=== PATIENT | female | born 1940 | race Caucasian/White ===

== ENCOUNTER 2018-08-07 18:02 | Inpatient (IN) | payer MEDICARE, BC ==
[~2018-08-07] VITALS: Ht 165.1 cm; Wt 80.3 kg
[~2018-08-07 18:02] MED LIST: ACET-822 PO; ALEN70TA6 PO; BUPR-51 PO; CALC0.5C11 PO; CALC500T29 PO; COLE625T9 PO; DOCU100T2 PO; ESOM40SU PO; FERR325T28 PO; LEVO75TA7 PO; LITH300C4 PO; MAGN400O6 PO; METO-356 PO; MULT-594 PO; OLME20TA13 PO; SENN-168 PO; SIMV10TA6 PO; TEMA15CA5 PO; [UNRECOGNIZED DRUG - OTHER] PO
--- NOTE | 2018-08-07 18:04 | NUR ---
MILANA ELLIS 89 FROM [facility],C/O NAUSEA/WEAKNESS/NEAR SYNCOPE, TO ER BED 9, HOOKED TO MONITOR, AWAITING MD GOMEZ
--- NOTE | 2018-08-07 18:05 | NUR ---
DR LEMUS AT BEDSIDE
[2018-08-07] MEDS ORDERED: IV NS 0.9% 1,000 ML BAG IV ONE (18:30)
[2018-08-07 18:40] LABS: BASOPHILS % (AUTO) 0.3 % (0.0-2.0); EOSINOPHILS % (AUTO) 0.3 % (0.0-6.0); HEMATOCRIT 45 % (33-45); HEMOGLOBIN 14.6 g/dL (11.5-14.8); LYMPHOCYTES # (AUTO) 1.5 /CMM (0.8-4.8); LYMPHOCYTES % (AUTO) 14.7 % (20.0-44.0); MEAN CORPUSCULAR HGB CONC 33 g/dl (31.0-36.0); MEAN CORPUSCULAR VOLUME 96 fL (82-100); MONOCYTES # (AUTO) 0.6 /CMM (0.1-1.30); MONOCYTES % (AUTO) 5.6 % (2.0-12.0); NEUTROPHILS # (AUTO) 8.3 /CMM (1.8-8.9); NEUTROPHILS % (AUTO) 79.1 % (43.0-81.0); PLATELET COUNT (AUTO) 208 /CMM (150-450); RED BLOOD CELL COUNT(AUTO) 4.65 MIL/uL (4.0-5.2); WHITE BLOOD COUNT (AUTO) 10.5 K/uL (4.3-11.0)
[2018-08-07 19:05] LABS: ALANINE AMINOTRANSFERASE 69 U/L (12-78); ALBUMIN 3.1 g/dL (3.4-5.0); ALKALINE PHOSPHATASE 83 U/L (46-116); ASPARTATE AMINOTRANSFERASE 35 U/L (15-37); BILIRUBIN,DIRECT 0.1 mg/dL (0.0-0.2); BILIRUBIN,TOTAL 0.4 mg/dL (0.2-1.0); CALCIUM, SERUM 8.8 mg/dL (8.5-10.1); CARBON DIOXIDE 29 mmol/L (21-32); CHLORIDE 105 mmol/L (98-107); CREATININE 1.1 mg/dL (0.6-1.3); GLUCOSE 122 mg/dL (74-106); POTASSIUM 3.7 mmol/L (3.5-5.1); SODIUM SERUM 142 mmol/L (136-145); TOTAL PROTEIN, SERUM 6.4 g/dL (6.4-8.2); UREA NITROGEN, BLOOD 18 mg/dL (7-18)
[2018-08-07 19:09] LABS: APPEARANCE,URINE Clear (CLEAR); BILIRUBIN,URINE MODERATE (NEGATIVE); BLOOD, URINE Trace-lysed Ery/uL (NEGATIVE); COLOR,URINE Yellow (YELLOW); KETONES,URINE 15 (NEGATIVE); LEUKOCYTE ESTERASE ,URINE Negative (NEGATIVE); NITRITE, URINE Negative (NEGATIVE); PH,URINE 5.5 (5.0-8.0); PROTEIN,URINE 30 mg/dl (NEGATIVE); UGLUCOSE Negative (NEGATIVE); UROBILINOGEN,URINE 0.2 EU/dL (0.2)
--- NOTE | 2018-08-07 19:13 | NUR ---
REPORT GIVEN TO NEIL ROSALES FOR LEANNE
--- NOTE | 2018-08-07 19:15 | NUR ---
REPORT RECEIVED FROM CONNIE NORMAN FOR LEANNE.
[2018-08-07 19:31] LABS: BACTERIA,URINE None seen /HPF (None Seen); RBC,URINE 0-2 /HPF (0-2); SQUAMOUS EPITHELIAL CELL,UR Few /HPF (None Seen); URINE AMORPHOUS URATE Few /HPF (None Seen); WBC,URINE 0-2 /HPF (0-3)
--- NOTE | 2018-08-07 20:34 | NUR ---
18G IV TO L AC X 1 ATTEMPT USING ASEPTIC TECH, BLOOD HANDED OVER TO THE LAB AT BEDSIDE. IV FLUSHES EASILY WITH NS, NO S/S INFILTRATION NOTED AT THIS TIME.
[2018-08-07] MEDS ORDERED: IOHEXOL-350 100 ML VIAL IV ONE (20:35)
[2018-08-07] MEDS ORDERED: CT SWABBABLE VALVE TRANS SET 1 EA INFUS.SET MC ONE (20:35)
[2018-08-07] MEDS ORDERED: IV NS 0.9% 250 ML IV ONE (20:35)
--- NOTE | 2018-08-07 20:44 | NUR ---
PATIENT TO CT VIA STRETCHER. VSS.
--- NOTE | 2018-08-07 20:49 | NUR ---
PATIENT BACK FROM CT.
--- NOTE | 2018-08-07 22:05 | NUR ---
RECEIVED A CALL FROM MICHELLE AT [facility] AND SHE CALLED TO INFORM THAT SHE HAS SPOKEN TO DR SHI AND AND HE HAS CONFIRMED THAT HE WILL BE ADMITTING THIS PT.
[2018-08-07] MEDS ORDERED: OLAN10TA3 PO (22:08)
[2018-08-07] MEDS ORDERED: ARIP20TA4 PO (22:08)
[2018-08-07] MEDS ORDERED: POTA20TA83 PO (22:08)
[2018-08-07] MEDS ORDERED: CHOL200026 PO (22:08)
[2018-08-07] MEDS ORDERED: OMEP20CA10 PO (22:08)
[2018-08-07] MEDS ORDERED: LEVO100T9 PO (22:08)
--- NOTE | 2018-08-07 22:12 | NUR ---
PAGED DR SHI
--- NOTE | 2018-08-07 22:25 | NUR ---
CALLED KATIE [facility] THE RADIOLOGIST
--- NOTE | 2018-08-07 22:25 | NUR ---
PT IS ASSIGNED TO TELE RM#: [id number], DX: SYNCOPE, AND ACCEPTING MD: DR SHI
[2018-08-07] MEDS ORDERED: MAGNESIUM HYDROXIDE 30 ML UDC PO SCH (22:30)
--- NOTE | 2018-08-07 22:48 | NUR ---
REPORT CALLED TO CONNIE POWERS ON M/S FOR LEANNE.
[2018-08-07 23:00] VITALS: BP 133/66
--- NOTE | 2018-08-07 23:00 | NUR ---
PHARMACOGNOSIST OPENING NOTES: RECEIVED PT FROM ER. PT ACCOMPANIED WITH CAREGIVER AT BEDSIDE. PT ON ROOM AIR AND TOLERATING WELL. NO SOB NOTED. NO S/S OF DISTRESS. PT HAS IV ON R HAND #18G AND IS PATENT AND INTACT. PT ALSO HAS IV ON LAC #18G AND IS TO BE STARTED ON IV NS AT 75ML/HR. PT TO BE PLACED ON TELE BOX WELL. BED KEPT IN LOW, LOCKED POSITION, AND SIDE RAILS X 2UP. WILL CONTINUE TO MONITOR PT.
--- NOTE | 2018-08-07 23:00 | NUR ---
PATIENT TRANSPORTED VIA STRETCHER TO TELE [id number] ON FITTING ROOM SUPERVISOR WITH RN PER ACLS PROTOCOL. VSS.
[2018-08-08] VITALS (7 sets, daily range): BP systolic 120–156; BP diastolic 56–81
[2018-08-08] MEDS ORDERED: ONDANSETRON HCL/PF 4 MG/2 ML VIAL IV PRN
[2018-08-08] MEDS ORDERED: IV NS 0.9% 1,000 ML BAG IV SCH
[2018-08-08] MEDS ORDERED: ACETAMINOPHEN 325 MG TABLET PO PRN
[2018-08-08] MEDS ORDERED: IV NS 0.9% 1,000 ML BAG IV PRN (00:30)
[2018-08-08] MEDS: IV NS 0.9% 1,000 ML IV PRN ×2 (00:48→17:08)
[2018-08-08 06:21] LABS: BASOPHILS # (AUTO) 0.1 /CMM (0.0-0.2); BASOPHILS % (AUTO) 0.9 % (0.0-2.0); EOSINOPHILS % (AUTO) 1.4 % (0.0-6.0); HEMATOCRIT 39 % (33-45); HEMOGLOBIN 13.2 g/dL (11.5-14.8); LYMPHOCYTES % (AUTO) 25.9 % (20.0-44.0); MEAN CORPUSCULAR HGB CONC 34 g/dl (31.0-36.0); MEAN CORPUSCULAR VOLUME 94 fL (82-100); MONOCYTES # (AUTO) 0.8 /CMM (0.1-1.30); MONOCYTES % (AUTO) 10.1 % (2.0-12.0); NEUTROPHILS # (AUTO) 4.8 /CMM (1.8-8.9); NEUTROPHILS % (AUTO) 61.7 % (43.0-81.0); PLATELET COUNT (AUTO) 189 /CMM (150-450); RED BLOOD CELL COUNT(AUTO) 4.17 MIL/uL (4.0-5.2); WHITE BLOOD COUNT (AUTO) 7.7 K/uL (4.3-11.0)
--- NOTE | 2018-08-08 06:32 | NUR ---
ACCESS SPECIALIST CLOSING NOTES: ALL NEEDS WERE ATTENDED AND ANTICIPATED FOR. PT KEPT CLEAN, DRY, AND COMFORTABLE. PT ON ROOM AIR AND TOLERATING WELL. NO SOB NOTED. NO S/S OF DISTRESS. PT HAS IV ON L AC #18G AND IS PATENT AND INTACT. KEPT H/L. PT ALSO HAS IV ON R HAND #18G AND IS BEING INFUSED WITH IV NS AT 75ML/HR. BED ALARM ACTIVATED. CAREGIVER AT BEDSIDE. PT ON TELE BOX AND READING SHOWS SR 67. BED KEPT IN LOW, LOCKED POSITION, AND SIDE RAILS X 2UP. WILL ENDORSE TO AM NURSE FOR LEANNE.
[2018-08-08 06:41] LABS: CARBON DIOXIDE 26 mmol/L (21-32); CHLORIDE 111 mmol/L (98-107); CREATININE 0.8 mg/dL (0.6-1.3); GLUCOSE 96 mg/dL (74-106); POTASSIUM 3.5 mmol/L (3.5-5.1); SODIUM SERUM 145 mmol/L (136-145); UREA NITROGEN, BLOOD 14 mg/dL (7-18)
--- NOTE | 2018-08-08 07:06 | NUR ---
REMOTE SENSING SURVEYOR NOTES PATIENT IN BED ALERT ORIENTED X 4, NO ACUTE DISTRESS NOTED. BREATHING UNLABORED. NO SOB NOTED. IV ACCESS PATENT AND INTACT, NO REDNESS OR SWELLING NOTED. SAFETY MEASURES IN PLACE. CALL LIGHT WITHIN REACH. WILL CONTINUE TO MONITOR ACCORDINGLY.
[2018-08-08] MEDS: PANTOPRAZOLE 40 MG TABLET.DR PO SCH (07:58)
[2018-08-08] MEDS: BUPROPION XL 150 MG TAB.ER.24 PO SCH ×2 (09:00→17:07)
[2018-08-08] MEDS: LEVOTHYROXINE SODIUM 100 MCG TABLET PO SCH (09:00)
[2018-08-08] MEDS: ENOXAPARIN SODIUM 30 MG/0.3 ML DISP.SYRIN SQ SCH (09:00)
[2018-08-08] MEDS ORDERED: LITHIUM CARBONATE 150 MG CAPSULE PO SCH (09:00)
[2018-08-08] MEDS: ASPIRIN 81 MG TAB.CHEW PO SCH (09:14)
[2018-08-08] MEDS: FERROUS SULFATE (325 MG) 325 MG/TAB TABLET PO SCH ×3 (09:14→17:07)
[2018-08-08] MEDS: METOPROLOL SUCCINATE 25 MG TAB.SR.24H PO SCH (09:15)
--- NOTE | 2018-08-08 09:28 | NUR ---
APARTMENT MAINTENANCE TECHNICIAN NOTES PATIENT CHANGED HER MIND, REFUSED TAKING MEDICATIONS SYNTHROID 100 MCG, WELLBUTRIN 150MG, LITHIUM 150MG ALREADY OPENED, WASTED MEDICATIONS WITNESSED BY ANOTHER RN NAVDEEP. PATIENT ALSO REFUSED LOVENOX 30MG SQ. RISK AND BENEFITS EXPLAINED TO THE PATIENT, VERBALIZED UNDERSTANDING.
--- NOTE | 2018-08-08 10:03 | NUR ---
ECOLOGICAL ECONOMIST NOTES SEEN AND EVALUATED BY DR JEFFRY SHI WITH NEW ORDERS MADE. NOTED AND CARRIED OUT. DR SHI MADE AWARE OF PATIENT SOME MEDICATION REFUSED TO TAKE .
--- NOTE | 2018-08-08 18:49 | NUR ---
MS RN NOTES PATIENT IN BED ALERT ORIENTED X 4, NO ACUTE DISTRESS NOTED. BREATHING UNLABORED. NO SOB NOTED. IV ACCESS PATENT AND INTACT, NO REDNESS OR SWELLING NOTED. NEEDS ATTENDED AND ANTICIPATED. KEPT CLEAN DRY AND COMFORTABLE. SAFETY MEASURES IN PLACE. CALL LIGHT WITHIN REACH. WILL ENDORSE TO NIGHT NURSE FOR CONTINUITY OF CARE.
--- NOTE | 2018-08-08 19:30 | NUR ---
RECEIVED PATIENT IN BED AWAKE, AO X 2, ABLE TO MAKE NEEDS KNOWN. NO ACUTE DISTRESS NOTED. MONITORED FOR PAIN. IV SITE PATENT, INTACT; IVF INFUSING ORDERED. RIGHT HIP DRESSING INTACT. SAFETY REMINDERS GIVEN. ON LOW BED WITH BILATERAL UPPER SIDE RAILS UP. CALL CALDERON WITHIN EASY REACH. WILL CONTINUE TO MONITOR. SITTER AT BEDSIDE.
[2018-08-08] MEDS ORDERED: SIMVASTATIN 10 MG TABLET PO SCH (22:00)
[2018-08-08] MEDS ORDERED: TEMAZEPAM 15 MG CAPSULE PO SCH (22:00)
[2018-08-08] MEDS ORDERED: OLANZAPINE 10 MG TABLET PO SCH (22:00)
[2018-08-08] MEDS ORDERED: ARIPIPRAZOLE 5 MG TABLET PO SCH (22:00)
[2018-08-08] MEDS ORDERED: SENNOSIDES 8.6 MG TABLET PO SCH (22:00)
[2018-08-09] VITALS: BP 124/55
[2018-08-09 04:00] VITALS: BP 137/75
--- NOTE | 2018-08-09 06:00 | NUR ---
PATIENT ASLEEP, EASILY AROUSABLE. RESPIRATIONS EVEN. NO SIGNS OF PAIN NOTED. DUE MEDS GIVEN WITH NO ASE NOTED. IVF INFUSING ORDERED. NEEDS ATTENDED. SAFETY PRECAUTIONS AND COMFORT MEASURES IN PLACE. WILL GIVE REPORT TO DAY SHIFT FOR CONTINUITY OF CARE. CAREGIVER AT BEDSIDE.
--- NOTE | 2018-08-09 07:28 | NUR ---
TELE/RN OPENING NOTES PATIENT IN BED IN STABLE CONDITION. A/O X 3-4. NO SIGNS OF ACUTE DISTRESS. NO COMPLAIN OF PAIN OR DISCOMFORT. ON TELE MONITOR NOTED WITH SINUS RHYTHM IN 70'S. ALL NEEDS ATTENDED TO. MANAGER DEVELOPMENT AT BEDSIDE. CALL LIGHT WITHIN REACH. WILL CONTINUE TO MONITOR TO ENSURE SAFETY.
[2018-08-09 08:00] VITALS: BP 143/72
[2018-08-09] MEDS: ENOXAPARIN SODIUM 30 MG/0.3 ML DISP.SYRIN SQ SCH (08:17)
[2018-08-09] MEDS: LEVOTHYROXINE SODIUM 100 MCG TABLET PO SCH (08:18)
[2018-08-09] MEDS: PANTOPRAZOLE 40 MG TABLET.DR PO SCH (08:18)
[2018-08-09] MEDS: FERROUS SULFATE (325 MG) 325 MG/TAB TABLET PO SCH ×2 (08:18→13:21)
[2018-08-09] MEDS: BUPROPION XL 150 MG TAB.ER.24 PO SCH (08:18)
[2018-08-09] MEDS: ASPIRIN 81 MG TAB.CHEW PO SCH (08:18)
[2018-08-09 08:19] VITALS: BP 143/72
[2018-08-09] MEDS: METOPROLOL SUCCINATE 25 MG TAB.SR.24H PO SCH (08:19)
[2018-08-09] MEDS: IV NS 0.9% 1,000 ML IV PRN (08:44)
--- NOTE | 2018-08-09 10:00 | NUR ---
TELE/RN ORTHOSTATIC BP LAYING 118/53, 63. SITTING 122/65, 65. STANDING 137/83, 62
--- NOTE | 2018-08-09 15:38 | NUR ---
TELE/PAPER PATTERN FOLDER PATIENT DISCHARGE TO ASSISTED LIVING IN STABLE CONDITION. A/O X 3. NO SIGNS OF ACUTE DISTRESS. NO COMPLAIN OF PAIN OR DISCOMFORT. DISCHARGE INSTRUCTIONS AND EDUCATIONS PROVIDED TO PATIENT AND RUG CLEANER. VERBALIZED UNDERSTANDING. PATIENT REFUSED DISCHARGE SKIN ASSESSMENT. OFFERED X 3 WITH RISKS AND BENEFITS EXPLAINED STILL CONTINUE TO REFUSE VERBALIZING, "SHE HAD SKIN PICTURES TAKEN UPON ADMISSION AND SHE DOESN'T WANT IT ANYMORE." ALL NEEDS ATTENDED TO. NAME BAND AND IV LINE REMOVED. LEFT IN STABLE CONDITION VIA PRIVATE CAR ACCOMPANIED BY CAREGIVER AND DAUGHTER.
[2018-08-13] MEDS ORDERED: CALCITRIOL 0.25 MCG CAPSULE PO SCH (09:00)
== END 2018-08-09 15:38 | disposition home or self-care (01) | DRG 74 ==
LOC: ER 18:04 → TELE 22:31 → MED 08-08 14:27 → TELE 08-08 20:24 → MED 08-09 04:15 → TELE 08-09 06:25
PROVIDERS: ADMIT Legal Medicine; ATTEND Legal Medicine
DX: G90.8 Other disorders of autonomic nervous system (principal); I10 Essential (primary) hypertension; F31.9 Bipolar disorder, unspecified; Z96.641 Presence of right artificial hip joint; K21.9 Gastro-esophageal reflux disease without esophagitis; E03.9 Hypothyroidism, unspecified
CPT/HCPCS: 36415; 70450-TC; 71045-TC; 80048-TC; 80076-TC; 81000-TC; 82962-TC; 83605-TC; 84484-TC; 85025-TC; 85730-TC; 87040-TC; 87081-TC; 87086-TC; 93307-TC; 93880-TC; G0378; J1650; J7030; J7050; Q9967

== ENCOUNTER 2018-09-24 20:15 | Inpatient (IN) | payer MEDICARE, BC ==
[~2018-09-24] VITALS: Ht 165.1 cm; Wt 74.8 kg
[~2018-09-24 20:15] MED LIST changes: -ACET-822 PO; -ALEN70TA6 PO; +ARIP20TA4 PO; +CHOL200026 PO; +LEVO100T9 PO; -LEVO75TA7 PO; +OLAN10TA3 PO; +OMEP20CA10 PO; +POTA20TA83 PO
--- NOTE | 2018-09-24 20:23 | NUR ---
MICHELLE CALLED FROM [facility] AND NOTIFIED US THAT THE PATIENTS PCP IS DR SHI
[2018-09-24] MEDS ORDERED: IV NS 0.9% 1,000 ML BAG IV ONE (20:30)
[2018-09-24 20:42] LABS: BASOPHILS # (AUTO) 0.1 /CMM (0.0-0.2); BASOPHILS % (AUTO) 0.9 % (0.0-2.0); EOSINOPHILS % (AUTO) 1.2 % (0.0-6.0); HEMATOCRIT 48 % (33-45); HEMOGLOBIN 16.4 g/dL (11.5-14.8); LYMPHOCYTES % (AUTO) 25.9 % (20.0-44.0); MEAN CORPUSCULAR HGB CONC 34 g/dl (31.0-36.0); MEAN CORPUSCULAR VOLUME 93 fL (82-100); MONOCYTES # (AUTO) 0.7 /CMM (0.1-1.30); NEUTROPHILS # (AUTO) 4.8 /CMM (1.8-8.9); PLATELET COUNT (AUTO) 194 /CMM (150-450); RED BLOOD CELL COUNT(AUTO) 5.16 MIL/uL (4.0-5.2); WHITE BLOOD COUNT (AUTO) 7.6 K/uL (4.3-11.0)
--- NOTE | 2018-09-24 20:51 | NUR ---
BIBRA 102, SYNCOPE "HAD X2 EPISODES OVER 3 DAYS, LASTED 30 SEC'S TODAY, + ORTHO, -INJURY, - CHANGE LOC, AOX4, ASSESED, PLACED ON ER BED 4, SEEN AND EVAL DONE BY ER DR EARLY. IV FLUIDS INITIATED.
[2018-09-24 21:05] LABS: CARBON DIOXIDE 28 mmol/L (21-32); CHLORIDE 107 mmol/L (98-107); CREATININE 0.9 mg/dL (0.6-1.3); GLUCOSE 116 mg/dL (74-106); SODIUM SERUM 143 mmol/L (136-145); UREA NITROGEN, BLOOD 14 mg/dL (7-18)
[2018-09-24 21:06] LABS: POTASSIUM 2.7 mmol/L (3.5-5.1)
[2018-09-24] MEDS ORDERED: POTASSIUM CHLORIDE 20 MEQ TAB.PRT.SR PO ONE ×2 (21:30→21:36)
--- NOTE | 2018-09-24 21:30 | NUR ---
RN NOTES ADMITTED A FEMALE PATIENT FROM ER VIA STRETCHER IN STABLE CONDITION. NO DISTRESS NOTED. VITAL SIGNS WNL. ALERT AND ORIENTED, SAT TUTOR AT BEDSIDE. NO COMPLAINT OF PAIN OR DISCOMFORT. VERBALLY ABLE TO COMMUNICATE NEEDS. SKIN ASSESSMENT DONE. KEPT CLEAN AND ALERT.
[2018-09-24] MEDS ORDERED: POTA20TA83 PO (21:34)
[2018-09-24] MEDS ORDERED: SENN-22 PO (21:34)
[2018-09-24] MEDS ORDERED: METO25TA6 PO (21:34)
[2018-09-24] MEDS ORDERED: LEVO100T9 PO (21:34)
[2018-09-24] MEDS ORDERED: LISI10TA5 PO (21:34)
[2018-09-24] MEDS ORDERED: CHOL200026 PO (21:34)
[2018-09-24] MEDS ORDERED: BUPR-96 PO (21:34)
[2018-09-24] MEDS ORDERED: ARIP20TA4 PO (21:34)
[2018-09-24] MEDS ORDERED: CALC-343 PO (21:34)
[2018-09-24] MEDS ORDERED: OMEP20CA10 PO (21:34)
[2018-09-24] MEDS ORDERED: SIMV10TA2 PO (21:34)
[2018-09-24] MEDS ORDERED: CALC0.5C11 PO (21:34)
[2018-09-24] MEDS ORDERED: FERR325T23 PO (21:34)
[2018-09-24] MEDS ORDERED: OLAN10TA3 PO (21:34)
[2018-09-24 22:00] VITALS: BP 120/67
--- NOTE | 2018-09-24 22:00 | NUR ---
CALLED FOR REPORT, GIVEN TO FANI RN, PT GOING TO RM 116, TELE, ADMITTING MILDRED MONTANO, MED RECON' DONE, VS STABLE, ALL PERSONAL BELONGING WITH PT STEEL FIXER.
--- NOTE | 2018-09-24 22:13 | NUR ---
TBA TELE 116 [facility] MILDRED MCINTYRE DX SYNCOPE
[2018-09-24] MEDS ORDERED: IV NS 0.9% 1,000 ML IV PRN (22:32)
[2018-09-24] MEDS ORDERED: MAGNESIUM HYDROXIDE 30 ML UDC PO PRN (23:00)
[2018-09-24] MEDS ORDERED: Z GUARD REMEDY 2 OZ OINT TP PRN (23:00)
[2018-09-24] MEDS ORDERED: MAG HYDROX/AL HYDROX/SIMETH 30 ML UDC PO PRN (23:00)
[2018-09-24] MEDS ORDERED: HYDROCODONE/APAP 5/325MG 1 EACH TABLET PO PRN (23:00)
[2018-09-24] MEDS ORDERED: ACETAMINOPHEN 325 MG TABLET PO PRN (23:00)
[2018-09-24] MEDS ORDERED: ONDANSETRON HCL/PF 4 MG/2 ML VIAL IVP PRN (23:00)
[2018-09-24 23:37] VITALS: BP 120/67
[2018-09-25] VITALS: BP 139/61
[2018-09-25] MEDS ORDERED: PNEUMOCOCCAL 23-VAL P-SAC VAC 0.5 ML VIAL SQ ONE ×2 (01:30→10:52)
[2018-09-25 04:00] VITALS: BP 118/53
[2018-09-25 07:11] LABS: BASOPHILS % (AUTO) 0.7 % (0.0-2.0); EOSINOPHILS % (AUTO) 1.3 % (0.0-6.0); HEMATOCRIT 40 % (33-45); HEMOGLOBIN 13.6 g/dL (11.5-14.8); LYMPHOCYTES # (AUTO) 1.5 /CMM (0.8-4.8); LYMPHOCYTES % (AUTO) 29.8 % (20.0-44.0); MEAN CORPUSCULAR HGB CONC 34 g/dl (31.0-36.0); MEAN CORPUSCULAR VOLUME 92 fL (82-100); MONOCYTES # (AUTO) 0.7 /CMM (0.1-1.30); MONOCYTES % (AUTO) 12.8 % (2.0-12.0); NEUTROPHILS # (AUTO) 2.8 /CMM (1.8-8.9); NEUTROPHILS % (AUTO) 55.4 % (43.0-81.0); PLATELET COUNT (AUTO) 157 /CMM (150-450); RED BLOOD CELL COUNT(AUTO) 4.32 MIL/uL (4.0-5.2); WHITE BLOOD COUNT (AUTO) 5.1 K/uL (4.3-11.0)
--- NOTE | 2018-09-25 07:13 | NUR ---
RN NOTES FLU VACCINE AND PNA VACCINE REQUESTED BY PATIENT TO BE GIVEN IN AM
[2018-09-25 07:28] LABS: CALCIUM, SERUM 8.4 mg/dL (8.5-10.1); CARBON DIOXIDE 27 mmol/L (21-32); CHLORIDE 111 mmol/L (98-107); CREATININE 0.7 mg/dL (0.6-1.3); GLUCOSE 95 mg/dL (74-106); MAGNESIUM 1.6 mg/dL (1.8-2.4); PHOSPHORUS 2.6 mg/dL (2.5-4.9); SODIUM SERUM 149 mmol/L (136-145); UREA NITROGEN, BLOOD 10 mg/dL (7-18)
[2018-09-25 07:35] LABS: CHOLESTEROL 177 mg/dL (<200); HDL CHOLESTEROL 35 mg/dL (40-60); LDL 120 mg/dL (0-99); THYROID STIMULATING HORMONE 7.408 uIU/mL (0.358-3.74); TRIGLYCERIDES 128 mg/dL (30-150)
[2018-09-25 07:46] LABS: POTASSIUM 2.7 mmol/L (3.5-5.1)
[2018-09-25 08:00] VITALS: BP 135/66
--- NOTE | 2018-09-25 08:00 | NUR ---
TIMBER FRAMER NOTE RECEIVED PATIENT IN BED , ALL NEEDS ATTENDED. ALERT ORIENTED .FRIEND AT BEDSIDE .ON TELE MONITOR SR HR 79. ABLE TO EAT BREAKFAST SELF, LT AC HL INTACT ON IVF ORDERED , BED IN LOWEST AND LOCKED POSITION , WILL CONT TO MONITOR CLOSELY , PLAN OF CARE DISCUSSED WITH PATIENT .NO SOB O C]O PAIN OR DISCOMFORT AT THIS TIME
[2018-09-25] MEDS: LISINOPRIL (10MG) 10 MG TABLET PO SCH (08:40)
[2018-09-25] MEDS: CHOLECALCIFEROL 1,000 UNIT TABLET (VIT D3) PO SCH (08:41)
[2018-09-25] MEDS: PANTOPRAZOLE 40 MG TABLET.DR PO SCH (08:41)
[2018-09-25] MEDS: LEVOTHYROXINE SODIUM 100 MCG TABLET PO SCH (08:41)
[2018-09-25] MEDS: BUPROPION XL 150 MG TAB.ER.24 PO SCH ×2 (08:44→16:48)
[2018-09-25] MEDS: CALCIUM CARBONATE (1250) 500 MG TABLET PO SCH ×3 (08:45→17:52)
[2018-09-25] MEDS: POTASSIUM CHLORIDE 20 MEQ TAB.PRT.SR PO SCH ×6 (08:46→14:19)
[2018-09-25] MEDS ORDERED: FERROUS SULFATE (325 MG) 325 MG/TAB TABLET PO SCH (09:00)
[2018-09-25] MEDS ORDERED: METOPROLOL SUCCINATE 25 MG TAB.SR.24H PO SCH (09:00)
[2018-09-25] MEDS ORDERED: IV NS 0.9% 1,000 ML IV PRN (09:17)
--- NOTE | 2018-09-25 09:39 | NUR ---
ASSISTANT NOTE SPOKE WITH DR LINDSAY NOTIFIED THAT BP SUPINE POSITION 135/66, SITTING 133/71 STANDING 114/79 ALSO NOTIFIED THAT K 2.7 STATED THAT WILL CHECK IT OUT
[2018-09-25] MEDS: Magnesium 1GM/D5W 100ML PREMIX 100 ML IV SCH ×2 (10:17→11:20)
--- NOTE | 2018-09-25 11:00 | NUR ---
television repairer note 2decho done as ordered flu and pna vaccine given , will cont to monitor closely
[2018-09-25 12:00] VITALS: BP 127/66
--- NOTE | 2018-09-25 13:00 | NUR ---
LATIN DANCE INSTRUCTOR NOTE FAMILY AT BEDSIDE, CONT ON IVF, ASSISTED TO BR, ABLE TO URINATE WELL ,KEEP CLEAN DRY. WILL CONT TO MONITOR
--- NOTE | 2018-09-25 15:43 | NUR ---
FAMILY SOCIOLOGIST NOTE CALLED TO RADIOLOGY FOR CT HEAD STATED THAT HARESH BE DO SOON
[2018-09-25 16:00] VITALS: BP 126/66
--- NOTE | 2018-09-25 19:30 | NUR ---
PROCUREMENT ACCOUNTANT NOTE, RECEIVED PATIENT IN BED, ALERT ORIENTED, ABLE TO VERBALIZED NEEDS AND CONCERNS, BREATHING EVEN AND UNLABORED, NO SOB/ACUTE DISTRESS NOTED, TELE MONITOR SR HR 70S AT THIS TIME, IV ACCESS LEFT AC NOTED DISLODGED, WILL START ANOTHER ONE, BED IN LOWEST AND LOCKED POSITION ,CALL LIGHT W/I REACH, FRIEND AT BEDSIDE, SCHEDULED FOR CT SCAN OF HEAD WO CONTRAST, WILL F/U WITH RADIOLOGY, WILL CONTINUE TO MONITOR CLOSELY.
--- NOTE | 2018-09-25 19:36 | NUR ---
AIRFRAME AND POWERPLANT MECHANIC NOTE FAMILY AT BEDSIDE, NOT IN ACUTE DISTRESS
[2018-09-25 20:00] VITALS: BP 111/52
--- NOTE | 2018-09-25 21:00 | NUR ---
A P MANAGER NOTES, RETURNING AT THIS TIME FROM ABOUT 20MIN TRIP TO RADIOLOGY DEPARTMENT FOR CT SCAN OF HEAD W/O CONTRAST, PATIENT TAKING IN W/C WITH GEOPHYSICAL PROSPECTING SURVEYOR IN PLACED AND ALL SAFETY PRECAUTIONS, WITH RADIOLOGY STAFF AND RN, NO DISTRESS NOTED, STABLE DURING TRANSFER.
[2018-09-25] MEDS ORDERED: SIMVASTATIN 10 MG TABLET PO SCH (22:00)
[2018-09-25] MEDS: SENNOSIDES 8.6 MG TABLET PO SCH (22:13)
[2018-09-25] MEDS: OLANZAPINE 10 MG TABLET PO SCH (22:13)
[2018-09-25] MEDS: ARIPIPRAZOLE 5 MG TABLET PO SCH (22:13)
[2018-09-26] VITALS: BP 130/66
[2018-09-26 04:00] VITALS: BP 126/58
--- NOTE | 2018-09-26 06:36 | NUR ---
ENTRY LEVEL ACCOUNTING CLERK NOTE, PATIENT IN BED AWAKE , ALERT ORIENTED X4, ABLE TO VERBALIZED NEEDS AND CONCERNS, BREATHING EVEN AND UNLABORED, NO SOB/ACUTE DISTRESS NOTED, TELE MONITOR SR HR 70S AT THIS TIME, IV ACCESS LEFT HAND, IVF INFUSING WELL AND PATIENT TOLERATED WELL, BED IN LOWEST AND LOCKED POSITION, CALL LIGHT W/I REACH, CT HEAD LAST NIGHT, RESULTS STILL PENDING, EKG DONE THIS MORNING WITH NSR RESULT, NO SIGNIFICANT CHANGE OF CONDITION DURING THE NIGHT, WILL ENDORSE ONCOMING NURSE, FOR CONTINUITY OF CARE, PATIENT REFUSED PICTURES OF SKIN ISSUES LAS NIGHT, EXPLAINED RISKS AND BENEFITS, STILL REFUSED.
[2018-09-26 07:05] LABS: ALANINE AMINOTRANSFERASE 40 U/L (12-78); ALBUMIN 2.4 g/dL (3.4-5.0); ALKALINE PHOSPHATASE 56 U/L (46-116); ASPARTATE AMINOTRANSFERASE 28 U/L (15-37); BILIRUBIN,TOTAL 0.4 mg/dL (0.2-1.0); CALCIUM, SERUM 8.3 mg/dL (8.5-10.1); CARBON DIOXIDE 26 mmol/L (21-32); CHLORIDE 114 mmol/L (98-107); CREATININE 0.7 mg/dL (0.6-1.3); GLUCOSE 90 mg/dL (74-106); MAGNESIUM 1.9 mg/dL (1.8-2.4); PHOSPHORUS 2.4 mg/dL (2.5-4.9); POTASSIUM 3.3 mmol/L (3.5-5.1); SODIUM SERUM 148 mmol/L (136-145); TOTAL PROTEIN, SERUM 4.9 g/dL (6.4-8.2); UREA NITROGEN, BLOOD 4 mg/dL (7-18)
[2018-09-26 07:11] LABS: BASOPHILS % (AUTO) 0.3 % (0.0-2.0); EOSINOPHILS % (AUTO) 2.4 % (0.0-6.0); HEMATOCRIT 38 % (33-45); HEMOGLOBIN 12.9 g/dL (11.5-14.8); LYMPHOCYTES # (AUTO) 1.7 /CMM (0.8-4.8); LYMPHOCYTES % (AUTO) 39.3 % (20.0-44.0); MEAN CORPUSCULAR HGB CONC 34 g/dl (31.0-36.0); MEAN CORPUSCULAR VOLUME 93 fL (82-100); MONOCYTES # (AUTO) 0.5 /CMM (0.1-1.30); MONOCYTES % (AUTO) 11.6 % (2.0-12.0); NEUTROPHILS % (AUTO) 46.4 % (43.0-81.0); PLATELET COUNT (AUTO) 142 /CMM (150-450); RED BLOOD CELL COUNT(AUTO) 4.11 MIL/uL (4.0-5.2); WHITE BLOOD COUNT (AUTO) 4.3 K/uL (4.3-11.0)
--- NOTE | 2018-09-26 07:30 | NUR ---
RN OPENING NOTES PT AWAKE AND RESTING IN BED. FRIEND AT BEDSIDE. NO COMPLAINTS OF PAIN, SOB OR DISTRESS AT THIS TIME. PT HAS A LEFT HAND #22 INTACT RUNNING NS @125 ML/HR. PT TELE MONITORED AT . SAFETY PRECAUTIONS IN PLACE, BED IN LOWEST LOCKED POSITION, X2 SIDE RAILS UP AND CALL LIGHT WITHIN REACH. WILL CONTINUE TO MONITOR.
[2018-09-26 08:00] VITALS: BP 135/67
[2018-09-26] MEDS: CALCIUM CARBONATE (1250) 500 MG TABLET PO SCH ×3 (08:10→17:39)
[2018-09-26] MEDS: PANTOPRAZOLE 40 MG TABLET.DR PO SCH (08:10)
[2018-09-26] MEDS: POTASSIUM CHLORIDE 20 MEQ TAB.PRT.SR PO SCH ×2 (08:10→11:15)
[2018-09-26] MEDS: BUPROPION XL 150 MG TAB.ER.24 PO SCH ×2 (08:10→17:38)
[2018-09-26] MEDS: CHOLECALCIFEROL 1,000 UNIT TABLET (VIT D3) PO SCH (08:10)
[2018-09-26] MEDS: LISINOPRIL (10MG) 10 MG TABLET PO SCH (08:10)
[2018-09-26] MEDS: LEVOTHYROXINE SODIUM 100 MCG TABLET PO SCH (08:11)
[2018-09-26] MEDS ORDERED: POTASSIUM CHLORIDE 20 MEQ TAB.PRT.SR PO SCH (10:00)
[2018-09-26] MEDS ORDERED: POTASSIUM PHOSPHATE MM 15 MMOL in IV D5W 250 ML IV SCH (12:30)
[2018-09-26] MEDS ORDERED: Potassium Chloride 20 MEQ in IV D5W 1,000 ML IV PRN (12:30)
[2018-09-26] MEDS: Potassium Phosphate meq 11 MEQ in IV D5W 100 ML IV SCH ×2 (14:35→21:02)
[2018-09-26 16:00] VITALS: BP 135/68
[2018-09-26 17:12] LABS: APPEARANCE,URINE SL CLOUDY (CLEAR); BILIRUBIN,URINE NEGATIVE (NEGATIVE); BLOOD, URINE 1+ Ery/uL (NEGATIVE); COLOR,URINE YELLOW (YELLOW); KETONES,URINE NEGATIVE (NEGATIVE); LEUKOCYTE ESTERASE ,URINE NEGATIVE (NEGATIVE); NITRITE, URINE NEGATIVE (NEGATIVE); PROTEIN,URINE NEGATIVE (NEGATIVE); UGLUCOSE NEGATIVE (NEGATIVE); UROBILINOGEN,URINE 0.2 EU/dL (0.2)
[2018-09-26 17:46] LABS: BACTERIA,URINE 3+ /HPF (None Seen); SQUAMOUS EPITHELIAL CELL,UR Few /HPF (None Seen)
--- NOTE | 2018-09-26 18:39 | NUR ---
RN CLOSING NOTES PT AWAKE AND RESTING IN BED. FRIEND AT BEDSIDE. NO COMPLAINTS OF PAIN, SOB OR DISTRESS AT THIS TIME. PT HAS A LEFT HAND #22 INTACT RUNNING KCL 20 MEQ @75 ML/HR. SAFETY PRECAUTIONS IN PLACE, BED IN LOWEST LOCKED POSITION, X2 SIDE RAILS UP AND CALL LIGHT WITHIN REACH. ALL PATIENT NEEDS MET DURING THE SHIFT. WILL ENDORSE TO LEATHER CARTRIDGE BELT MAKER NURSE FOR CONTINUITY OF CARE.
[2018-09-26 19:47] VITALS: BP 137/59
[2018-09-26] MEDS: ARIPIPRAZOLE 5 MG TABLET PO SCH (21:06)
[2018-09-26] MEDS: OLANZAPINE 10 MG TABLET PO SCH (21:06)
[2018-09-26] MEDS: SENNOSIDES 8.6 MG TABLET PO SCH (21:06)
[2018-09-26 22:00] VITALS: BP 131/59
[2018-09-27 04:00] VITALS: BP 132/66
--- NOTE | 2018-09-27 07:00 | NUR ---
NURSES AIDE NOTE, PATIENT IN BED AWAKE , ALERT ORIENTED X4, ABLE TO VERBALIZED NEEDS AND CONCERNS, BREATHING EVEN AND UNLABORED, NO SOB/ACUTE DISTRESS NOTED, PATIENT STATES ACCIDENTALLY PULLED THE IV AND DOESN'T WANT US TO START ANOTHER IV, CHARGE NURSE TRIED TO CONVINCED PATIENT, EXPLAINED RISKS AND BENEFITS, STILL REFUSED, NO SIGNIFICANT CHANGE IN CONDITION DURING THE NIGHT, WILL ENDORSE ONCOMING NURSE FOR CONTINUITY OF CARE.
--- NOTE | 2018-09-27 07:30 | NUR ---
RN NOTE: RECEIVED PATIENT IN BED, AWAKE, ALERT AND VERBALLY RESPONSIVE. BREATHING EVENLY AND UNLABORED SATURATING 93% IN ROOM AIR. CAREGIVER PRESENT AT THE BEDSIDE. DENIED ANY PAIN. ENDORSEMENT FROM PM SHIFT NURSE SAID THAT PATIENT REFUSED TO GET A IV INSERTED ON HER. TRIED TO CONVINCE THE PATIENT, BUT SHE STRONGLY REFUSED TO GET AN IV LINE. HOB ELEVATED. BED ALARMED AND LOCKED AT ALL TIMES. CALL LIGHT WITHIN REACH. NEEDS ANTICIPATED.
[2018-09-27] MEDS: PANTOPRAZOLE 40 MG TABLET.DR PO SCH (07:37)
[2018-09-27] MEDS: CALCIUM CARBONATE (1250) 500 MG TABLET PO SCH ×3 (07:37→17:12)
[2018-09-27] MEDS: LEVOTHYROXINE SODIUM 100 MCG TABLET PO SCH (07:37)
[2018-09-27 08:00] VITALS: BP 130/61
[2018-09-27] MEDS: LISINOPRIL (10MG) 10 MG TABLET PO SCH (08:32)
[2018-09-27] MEDS: POTASSIUM CHLORIDE 20 MEQ TAB.PRT.SR PO SCH (08:32)
[2018-09-27] MEDS: CHOLECALCIFEROL 1,000 UNIT TABLET (VIT D3) PO SCH (08:32)
[2018-09-27] MEDS: BUPROPION XL 150 MG TAB.ER.24 PO SCH ×2 (08:32→17:12)
--- NOTE | 2018-09-27 11:32 | NUR ---
RN NOTE: INFORMED DR. SHI RE: THE PATIENT'S REFUSAL TO HAVE A NEW IV LINE INSERTED FOR HER IV FLUID. MD WAS INFORMED THAT PATIENT HAS AN ORDER FOR KCL 20 MEQ @ 75ML/HR, BUT PATIENT REFUSED TO GET A NEW IV LINE. PATIENT HAS NO IV SITE SINCE THIS MORNING, BUT PATIENT RECEIVED A POTASSIUM 20 MEQ PO IN THE MORNING AND NO AM LABS FOR THE PATIENT. PER MD, OK TO HOLD THE CURRENT IV FLUID AND ORDERED A REPEAT BMP TODAY. ORDER, NOTED AND CARRIED OUT. PATIENT MADE AWARE.
[2018-09-27] MEDS ORDERED: CEFTRIAXONE 1 G in IV D5W 50 ML IV SCH (13:00)
--- NOTE | 2018-09-27 13:29 | NUR ---
RN NOTE: CALLED AND INFORMED DR. SHI RE: THE PATIENT'S ROCEPHIN IV ORDER. PATIENT STILL STRONGLY REFUSED TO HAVE AN IV LINE. PER DR. SHI OK TO GIVE THE ROCEPHIN 1 GM IM DAILY. ORDER, NOTED AND CARRIED OUT. PATIENT MADE AWARE. CAREGIVER PRESENT AT THE BEDSIDE.
[2018-09-27 13:36] LABS: CALCIUM, SERUM 8.9 mg/dL (8.5-10.1); CARBON DIOXIDE 28 mmol/L (21-32); CHLORIDE 110 mmol/L (98-107); CREATININE 0.8 mg/dL (0.6-1.3); GLUCOSE 122 mg/dL (74-106); POTASSIUM 4.2 mmol/L (3.5-5.1); SODIUM SERUM 146 mmol/L (136-145); UREA NITROGEN, BLOOD 4 mg/dL (7-18)
[2018-09-27] MEDS ORDERED: CEFTRIAXONE 1 G VIAL IM SCH (14:00)
[2018-09-27 16:00] VITALS: BP 128/56
--- NOTE | 2018-09-27 19:45 | NUR ---
RN NOTE: PATIENT REMAINED ON STABLE CONDITION. CAREGIVER PRESENT AT THE BEDSIDE. REPORT GIVEN TO PM SHIFT NURSE FOR CONTINUITY OF CARE.
[2018-09-27 20:00] VITALS: BP 124/62
[2018-09-27] MEDS: SENNOSIDES 8.6 MG TABLET PO SCH (21:08)
[2018-09-27] MEDS: OLANZAPINE 10 MG TABLET PO SCH (21:08)
[2018-09-27] MEDS: ARIPIPRAZOLE 5 MG TABLET PO SCH (21:08)
[2018-09-28] VITALS (7 sets, daily range): BP systolic 109–139; BP diastolic 51–73
--- NOTE | 2018-09-28 07:00 | NUR ---
DOG BEHAVIORIST CLOSING NOTE, PATIENT SLEEPING AT THIS TIME, BREATHING EVEN AND UNLABORED, NO SOB/ACUTE DISTRESS NOTED, RIGHT HAND IV ACCESS PATENT AND INTACT S/L, CAREGIVER AT BEDSIDE, NO SIGNIFICANT CHANGE IN CONDITION DURING THE NIGHT, WILL ENDORSE ONCOMING NURSE FOR CONTINUITY OF CARE.
[2018-09-28 07:25] LABS: BASOPHILS % (AUTO) 0.5 % (0.0-2.0); EOSINOPHILS % (AUTO) 3.2 % (0.0-6.0); HEMATOCRIT 40 % (33-45); HEMOGLOBIN 13.6 g/dL (11.5-14.8); LYMPHOCYTES # (AUTO) 1.3 /CMM (0.8-4.8); LYMPHOCYTES % (AUTO) 24.7 % (20.0-44.0); MEAN CORPUSCULAR HGB CONC 34 g/dl (31.0-36.0); MEAN CORPUSCULAR VOLUME 94 fL (82-100); MONOCYTES # (AUTO) 0.6 /CMM (0.1-1.30); NEUTROPHILS # (AUTO) 3.3 /CMM (1.8-8.9); NEUTROPHILS % (AUTO) 60.6 % (43.0-81.0); PLATELET COUNT (AUTO) 154 /CMM (150-450); RED BLOOD CELL COUNT(AUTO) 4.31 MIL/uL (4.0-5.2); WHITE BLOOD COUNT (AUTO) 5.4 K/uL (4.3-11.0)
--- NOTE | 2018-09-28 07:30 | NUR ---
RN NOTES RECEIVED REPORT FROM CAPACITOR PACK PRESS OPERATOR RN. PT WAS SEMI URENA IN BED WITH CAREGIVER AT BEDSIDE. PT IS AWAKE AND ALERT AND STATED THAT SHE WAS IN NO PAIN AT PRESENT TIME. PT HAS A 20 GAUGE IV IN R HAND SALINE LOCKED. VISUAL OF PT SHOWED NO SIGNS OF DISTRESS AND SHE WAS ABLE TO RESPOND TO QUESTIONS WITH NO DIFFICULTY.
[2018-09-28] MEDS: CALCIUM CARBONATE (1250) 500 MG TABLET PO SCH ×3 (08:11→17:08)
[2018-09-28] MEDS: LEVOTHYROXINE SODIUM 100 MCG TABLET PO SCH (08:11)
[2018-09-28] MEDS: PANTOPRAZOLE 40 MG TABLET.DR PO SCH (08:11)
[2018-09-28] MEDS: BUPROPION XL 150 MG TAB.ER.24 PO SCH ×2 (08:54→16:47)
[2018-09-28] MEDS: CHOLECALCIFEROL 1,000 UNIT TABLET (VIT D3) PO SCH (08:55)
[2018-09-28] MEDS: LISINOPRIL (10MG) 10 MG TABLET PO SCH (08:55)
[2018-09-28] MEDS: POTASSIUM CHLORIDE 20 MEQ TAB.PRT.SR PO SCH (08:55)
[2018-09-28] MEDS ORDERED: ALBUMIN 5% 12.5 GM in PREMIX 1 EA IV ONE (09:00)
--- NOTE | 2018-09-28 13:50 | NUR ---
RN NOTE: INFORMED DR. SHI THAT THE PATIENT AGREED TO RECEIVE HER ROCEPHIN ANTIBIOTIC THROUGH THE IV. MD WITH NEW ORDER, NOTED AND CARRIED OUT. PATIENT AND CAREGIVER MADE AWARE.
[2018-09-28] MEDS: CEFTRIAXONE 1 G in IV D5W 50 ML IV SCH (15:03)
--- NOTE | 2018-09-28 16:05 | NUR ---
RN NOTES PT DENIED ANY RESPIRATORY DISTRESS AND DENIED SUPPLEMENTAL OXYGEN THERAPY. BREATHING IS EQUAL AND UNLABORED.
--- NOTE | 2018-09-28 19:30 | NUR ---
RN CLOSING NOTE GAVE REPORT TO MAPLE PRODUCTS MAKER RN. PT WAS SEMI URENA IN BED WITH CAREGIVER AT BEDSIDE. PT IS AWAKE AND ALERT AND STATED THAT SHE WAS IN NO PAIN AT PRESENT TIME. PT HAS A 20 GAUGE IV IN R HAND SALINE LOCKED. VISUAL OF PT SHOWED NO SIGNS OF DISTRESS AND SHE WAS ABLE TO RESPOND TO QUESTIONS WITH NO DIFFICULTY.
--- NOTE | 2018-09-28 20:00 | NUR ---
RN NOTE: RECEIVED PATIENT IN BED, AWAKE, ALERT AND VERBALLY RESPONSIVE. BREATHING EVENLY AND UNLABORED ON RA WITH SATURATING 93% CAREGIVER PRESENT AT THE BEDSIDE. DENIED ANY PAIN OR SOB AT THIS TIME . RIGHT HAND 20G IV LINE IS PATIENT AND INTACT. HOB ELEVATED. BED ALARMED AND LOCKED AT ALL TIMES. CALL LIGHT WITHIN REACH. NEEDS ANTICIPATED. WILL CONTINUE TO MONITOR PATIENT CLOSELY.
[2018-09-28] MEDS: SENNOSIDES 8.6 MG TABLET PO SCH (21:38)
[2018-09-28] MEDS: ARIPIPRAZOLE 5 MG TABLET PO SCH (21:38)
[2018-09-28] MEDS: OLANZAPINE 10 MG TABLET PO SCH (21:39)
[2018-09-29 04:00] VITALS: BP 102/52
--- NOTE | 2018-09-29 06:39 | NUR ---
RN NOTE: PATIENT IS IN BED, AWAKE, ALERT AND VERBALLY RESPONSIVE. BREATHING EVENLY AND UNLABORED ON RA WITH SATURATING 93% CAREGIVER PRESENT AT THE BEDSIDE THE ENTIRE NIGHT. DENIES ANY PAIN OR SOB AT THIS TIME .NO ACUTE CHANGES NOTED DURING MY SHIFT. RIGHT HAND 20G IV LINE IS PATIENT AND INTACT. HOB ELEVATED. BED ALARMED AND LOCKED AT ALL TIMES. CALL LIGHT WITHIN REACH. NEEDS ANTICIPATED. WILL CONTINUE TO MONITOR PATIENT CLOSELY. Addendum: 09/29/18 at 0641 by MEME CRISTOBAL RN AND WILL ENDORSE PATIENT CARE TO AM SHIFT RN FOR [facility].
--- NOTE | 2018-09-29 07:58 | NUR ---
RN MS OPENING NOTE: PATIENT IS IN BED, AWAKE, ALERT AND VERBALLY RESPONSIVE. BREATHING EVENLY AND UNLABORED ON RA CAREGIVER PRESENT AT THE BEDSIDE DENIES ANY PAIN OR SOB AT THIS TIME NO EPISODES OF DIZZINESS REPORTED RIGHT HAND 20G IV LINE IS PATIENT AND INTACT.SAFETY PRECAUTIONS IN PLACE HOB ELEVATED. BED ALARMED AND LOCKED AT ALL TIMES. CALL LIGHT WITHIN REACH. NEEDS ANTICIPATED. WILL CONTINUE TO MONITOR
[2018-09-29 08:00] VITALS: BP 131/78
[2018-09-29] MEDS: CALCIUM CARBONATE (1250) 500 MG TABLET PO SCH ×3 (08:15→17:23)
[2018-09-29] MEDS: LISINOPRIL (10MG) 10 MG TABLET PO SCH (08:15)
[2018-09-29] MEDS: LEVOTHYROXINE SODIUM 100 MCG TABLET PO SCH (08:15)
[2018-09-29] MEDS: CHOLECALCIFEROL 1,000 UNIT TABLET (VIT D3) PO SCH (08:15)
[2018-09-29] MEDS: BUPROPION XL 150 MG TAB.ER.24 PO SCH ×2 (08:15→17:23)
[2018-09-29] MEDS: PANTOPRAZOLE 40 MG TABLET.DR PO SCH (08:16)
[2018-09-29] MEDS: POTASSIUM CHLORIDE 20 MEQ TAB.PRT.SR PO SCH (08:16)
[2018-09-29] MEDS: CEFTRIAXONE 1 G in IV D5W 50 ML IV SCH (13:41)
[2018-09-29 16:00] VITALS: BP 132/59
--- NOTE | 2018-09-29 19:26 | NUR ---
RN MS CLOSING NOTE: PATIENT IS IN BED, A/O X 3 VERBALLY RESPONSIVE. BREATHING EVENLY AND UNLABORED ON RA CAREGIVER PRESENT AT THE BEDSIDE DENIES ANY PAIN OR SOB AT THIS TIME NO EPISODES OF DIZZINESS REPORTED RIGHT HAND 20G IV LINE IS PATIENT AND INTACT.SAFETY PRECAUTIONS IN PLACE HOB ELEVATED. BED ALARMED AND LOCKED AT ALL TIMES. CALL LIGHT WITHIN REACH. NEEDS ANTICIPATED. WILL ENDORSE TO NOC
--- NOTE | 2018-09-29 19:45 | NUR ---
MS RN NOTE: RECEIVED PT ON BED ALERT AND AWAKE. ABLE TO MAKE NEEDS KNOWN. CAREGIVER AT BEDSIDE. NO APPARENT DISTRESS NOTED. DENIES PAIN AND DISCOMFORT AT THIS TIME. NO SOB NOTED. IV ON RIGHT HAND #20 INTACT AND PATENT, FLUSHING WELL. KEPT CLEAN, DRY AND COMFORTABLE. SAFETY AND FALL PRECAUTIONS OBSERVED AND MAINTAINED. CALL LIGHT PLACED WITHIN REACH. WILL CONTINUE TO MONITOR PT.
[2018-09-29 20:00] VITALS: BP 116/71
[2018-09-29] MEDS: ARIPIPRAZOLE 5 MG TABLET PO SCH (21:04)
[2018-09-29] MEDS: OLANZAPINE 10 MG TABLET PO SCH (21:04)
[2018-09-29] MEDS: SENNOSIDES 8.6 MG TABLET PO SCH (21:04)
[2018-09-30 04:00] VITALS: BP 113/62
--- NOTE | 2018-09-30 06:31 | NUR ---
MS RN NOTE: NO ACUTE CHANGES NOTED THROUGHOUT THE SHIFT. NO APPARENT DISTRESS NOTED. CAREGIVER STILL AT BEDSIDE. NO SOB NOTED. IV ON RIGHT HAND #20 INTACT AND PATENT, FLUSHING WELL. NO SIGNS/SYMPTOMS OF INFILTRATION NOTED. KEPT CLEAN, DRY AND COMFORTABLE. SAFETY AND FALL PRECAUTIONS OBSERVED AND MAINTAINED. WILL ENDORSE TO DAY SHIFT RN FOR CONTINUITY OF CARE.
--- NOTE | 2018-09-30 07:30 | NUR ---
RN OPENING NOTES RECEIVED REPORT FROM PNEUDRAULIC SYSTEMS MECHANIC RN. PT IS ASLEEP AT THIS TIME. PT IS ON RA. HAS RIGHT HAND IV 20 GAUGE SALINE LOCKED. PT AMBULATES WITH ASSIST FROM CAREGIVER. BED IS LOCKED AND IN LOWEST POSITION. CALL LIGHT WITHIN REACH. BREATHING IS EVEN AND UNLABORED AND NO DISTRESS NOTED.
[2018-09-30 08:00] VITALS: BP 114/70
[2018-09-30] MEDS: POTASSIUM CHLORIDE 20 MEQ TAB.PRT.SR PO SCH (08:17)
[2018-09-30] MEDS: LEVOTHYROXINE SODIUM 100 MCG TABLET PO SCH (08:17)
[2018-09-30] MEDS: CHOLECALCIFEROL 1,000 UNIT TABLET (VIT D3) PO SCH (08:17)
[2018-09-30] MEDS: BUPROPION XL 150 MG TAB.ER.24 PO SCH (08:17)
[2018-09-30] MEDS: CALCIUM CARBONATE (1250) 500 MG TABLET PO SCH ×2 (08:17→12:12)
[2018-09-30 08:23] VITALS: BP 114/70
[2018-09-30] MEDS: LISINOPRIL (10MG) 10 MG TABLET PO SCH (08:23)
[2018-09-30] MEDS: PANTOPRAZOLE 40 MG TABLET.DR PO SCH (08:24)
--- NOTE | 2018-09-30 14:29 | NUR ---
ABATTOIR MANAGER NOTES PATIENT IV REMOVED CATH INTACT. DAUGHTER AND CAREGIVER AT BEDSIDE. PHOTOS TAKEN. ALL EDUCATION AND MEDICATION GONE OVER WITH DAUGHTER ALL DISCHARGE PAPERS SIGNED AND COPIES GIVEN TO DAUGHTER. LEFT UNIT VIA W/C
--- NOTE | 2018-09-30 14:30 | NUR ---
CONNIE BEARD NOTES PT'S DAUGHTER PICKED UP PT. DAUGHTER WAS GIVEN DC INSTRUCTIONS. IV IN RIGHT HAND WAS DC. PT [facility]. PT WAS TAKEN OUT BY WHEELCHAIR AND WAS MET BY DAUGHTER IN THE CAR. Addendum: 09/30/18 at 1448 by SIA NEW RN ALL PHOTOS TAKEN AND DISCHARGE PACKET GIVEN TO DAUGHTER.
[2018-10-01] MEDS ORDERED: CALCITRIOL 0.25 MCG CAPSULE PO SCH (09:00)
== END 2018-09-30 14:30 | disposition home or self-care (01) | DRG 74 ==
LOC: ER 20:19 → TELE1 21:54 → MEDSG1 09-26 10:34
PROVIDERS: ADMIT Hospitalist; ATTEND Legal Medicine
DX: G90.8 Other disorders of autonomic nervous system (principal); N39.0 Urinary tract infection, site not specified; E83.42 Hypomagnesemia; E03.9 Hypothyroidism, unspecified; K21.9 Gastro-esophageal reflux disease without esophagitis; F41.9 Anxiety disorder, unspecified; E87.6 Hypokalemia; M19.90 Unspecified osteoarthritis, unspecified site; B96.1 Klebsiella pneumoniae [K. pneumoniae] as the cause of diseases classified elsewhere; E88.09 Other disorders of plasma-protein metabolism, not elsewhere classified; I10 Essential (primary) hypertension; F31.9 Bipolar disorder, unspecified; F03.90 Unspecified dementia, unspecified severity, without behavioral disturbance, psychotic disturbance, mood disturbance, and anxiety
CPT/HCPCS: 36415; 70450-TC; 71045-TC; 80048-TC; 80053-TC; 80061-TC; 81000-TC; 82728-TC; 82962-TC; 83540-TC; 83735-TC; 84100-TC; 84439-TC; 84443-TC; 84484-TC; 85025-TC; 85730-TC; 87081-TC; 87086-TC; 87186-TC; 90732; 93307-TC; 93880-TC; 95819-TC; A4216; G0378; J0696; J3475; J3480; J3490; J7030; J7060; J7070; P9045; Q2036

== ENCOUNTER 2018-10-02 20:04 | Emergency (ER) | payer MEDICARE, BC ==
[~2018-10-02] VITALS: Ht 165.1 cm; Wt 73.5 kg
[~2018-10-02 20:04] MED LIST changes: +BUPR-96 PO; +CALC-343 PO; +FERR325T23 PO; +LISI10TA5 PO; +METO25TA6 PO; +SENN-22 PO; +SIMV10TA2 PO
[2018-10-02 20:25] LABS: BASOPHILS % (AUTO) 0.1 % (0.0-2.0); HEMATOCRIT 45 % (33-45); LYMPHOCYTES % (AUTO) 14.8 % (20.0-44.0); MEAN CORPUSCULAR HGB CONC 33 g/dl (31.0-36.0); MEAN CORPUSCULAR VOLUME 94 fL (82-100); MONOCYTES # (AUTO) 0.6 /CMM (0.1-1.30); MONOCYTES % (AUTO) 8.4 % (2.0-12.0); NEUTROPHILS % (AUTO) 74.7 % (43.0-81.0); PLATELET COUNT (AUTO) 184 /CMM (150-450); RED BLOOD CELL COUNT(AUTO) 4.77 MIL/uL (4.0-5.2); WHITE BLOOD COUNT (AUTO) 6.7 K/uL (4.3-11.0)
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
[2018-10-02 20:36] LABS: CALCIUM, SERUM 9.2 mg/dL (8.5-10.1); CARBON DIOXIDE 31 mmol/L (21-32); CHLORIDE 106 mmol/L (98-107); GLUCOSE 104 mg/dL (74-106); SODIUM SERUM 141 mmol/L (136-145); UREA NITROGEN, BLOOD 19 mg/dL (7-18)
[2018-10-02 20:41] LABS: ACETAMINOPHEN < 2 ug/ml (10-30); ALANINE AMINOTRANSFERASE 123 U/L (12-78); ALCOHOL, BLOOD < 3 mg/dL (0-0); ALKALINE PHOSPHATASE 104 U/L (46-116); ASPARTATE AMINOTRANSFERASE 67 U/L (15-37); BILIRUBIN,DIRECT 0.1 mg/dL (0.0-0.2); BILIRUBIN,TOTAL 0.4 mg/dL (0.2-1.0); SALICYLATE 0.8 mg/dL (2.8-20.0); TOTAL PROTEIN, SERUM 6.5 g/dL (6.4-8.2)
[2018-10-02 21:11] LABS: THYROID STIMULATING HORMONE 2.954 uIU/mL (0.358-3.74)
--- NOTE | 2018-10-02 21:21 | NUR ---
PT RESTING IN BED DOING PUZZLES. VSS. SITTER AT BEDSIDE. WILL CONTINUE TO MONITOR.
[2018-10-03 00:15] VITALS: BP 155/68
--- NOTE | 2018-10-03 00:48 | NUR ---
PT ACCEPTED TO [facility] . # FOR REPORT [phone]
--- NOTE | 2018-10-03 00:52 | NUR ---
KATRINA CALLED FOR BLS TRANSPORT TO [facility]. ETA [id number] TRIP#[id number]
--- NOTE | 2018-10-03 01:02 | NUR ---
ROOM 145-C AT [facility]
--- NOTE | 2018-10-03 01:07 | NUR ---
REPORT GIVEN TO CONNIE BECKETT FOR LEANNE
--- NOTE | 2018-10-03 02:16 | NUR ---
Patient discharged to [facility] in stable condition. Written and verbal after care instructions given. Patient verbalizes understanding of instruction.
== END 2018-10-03 02:37 ==
LOC: ER 20:06
DX: F32.9 Major depressive disorder, single episode, unspecified (principal); I10 Essential (primary) hypertension
CPT/HCPCS: 36415; 80048; 80076; 80307; 84443; 84484; 85025; 93005; 99285; G0480

== ENCOUNTER 2020-12-09 20:43 | Inpatient (IN) | payer MEDICARE, BC ==
[~2020-12-09] VITALS: Ht 165.1 cm; Wt 98.9 kg
[~2020-12-09 20:43] MED LIST changes: -BUPR-51 PO; +BUPR-53 PO; +LISI10TA29 PO; -LISI10TA5 PO; -METO-356 PO; +METO25TA4 PO; -OMEP20CA10 PO; +OMEP20CA15 PO; -SENN-168 PO; -SENN-22 PO; +SENN-261 PO; +SENN1TAB6 PO; -SIMV10TA6 PO; +SIMV10TA98 PO
--- NOTE | 2020-12-09 20:54 | NUR ---
PT FROM [facility] REC'D CALL FROM JUNIE GANDHI FROM FACILITY. WOULD LIKE TO SPEAK TO DR. FOREMAN IF POSSIBLE; PT IS UNDER DR. MONTIEL PER REPORT [phone] JAY
--- NOTE | 2020-12-09 21:15 | NUR ---
PATIENT CAME IN FOR FEELING DIZZNESS AND WEAK, STATED SHE ALMOST FELL DURING THE DAY. PATIENT ON 2L NC O2 AT 97%. PATIENT HAS IV ACCESS ON LAC RUNNING NS. PATIENT CONNECTED TO MONITOR AND POX. WILL CONTINUE TO MONITOR.
[2020-12-09 21:23] LABS: BASOPHILS % (AUTO) 0.4 % (0.0-2.0); EOSINOPHILS % (AUTO) 0.6 % (0.0-6.0); HEMATOCRIT 44 % (33-45); HEMOGLOBIN 14.8 g/dL (11.5-14.8); LYMPHOCYTES % (AUTO) 18.6 % (20.0-44.0); MEAN CORPUSCULAR HGB CONC 33 g/dl (31.0-36.0); MEAN CORPUSCULAR VOLUME 97 fL (82-100); MONOCYTES # (AUTO) 1.2 /CMM (0.1-1.30); MONOCYTES % (AUTO) 11.2 % (2.0-12.0); NEUTROPHILS # (AUTO) 7.5 /CMM (1.8-8.9); NEUTROPHILS % (AUTO) 69.2 % (43.0-81.0); PLATELET COUNT (AUTO) 201 /CMM (150-450); RED BLOOD CELL COUNT(AUTO) 4.53 MIL/uL (4.0-5.2); WHITE BLOOD COUNT (AUTO) 10.9 K/uL (4.3-11.0)
--- NOTE | 2020-12-09 21:29 | NUR ---
COVID SWAB COLLECTED SENT TO LAB.
[2020-12-09 21:30] LABS: CALCIUM, SERUM 9.3 mg/dL (8.5-10.1); CARBON DIOXIDE 27 mmol/L (21-32); CHLORIDE 101 mmol/L (98-107); CREATININE 1.9 mg/dL (0.6-1.3); GLUCOSE 115 mg/dL (74-106); POTASSIUM 4.1 mmol/L (3.5-5.1); SODIUM SERUM 140 mmol/L (136-145); UREA NITROGEN, BLOOD 30 mg/dL (7-18)
[2020-12-09 21:36] LABS: ALANINE AMINOTRANSFERASE 46 U/L (12-78); ALBUMIN 3.1 g/dL (3.4-5.0); ALKALINE PHOSPHATASE 94 U/L (46-116); ASPARTATE AMINOTRANSFERASE 45 U/L (15-37); BILIRUBIN,DIRECT 0.1 mg/dL (0.0-0.2); BILIRUBIN,TOTAL 0.5 mg/dL (0.2-1.0); TOTAL PROTEIN, SERUM 6.8 g/dL (6.4-8.2)
--- NOTE | 2020-12-09 22:01 | NUR ---
CALL FROM LAB, RAPID COVID NEGATIVE.
[2020-12-09] MEDS ORDERED: PIPERACILLIN /TAZOBACTAM 3.375 G VIAL IV ONE (22:21)
[2020-12-09] MEDS ORDERED: VANCOMYCIN 1 GM VIAL ONE (22:21)
[2020-12-09] MEDS ORDERED: IV NS 0.9% 1,000 ML BAG IV ONE (22:30)
[2020-12-09] MEDS ORDERED: PIPERACILLIN /TAZOBACTAM 3.375 G in IV D5W 50 ML IV ONE (22:30)
[2020-12-09] MEDS ORDERED: VANCOMYCIN 1 GM in IV D5W 250 ML IV ONE (22:30)
--- NOTE | 2020-12-09 23:09 | NUR ---
URINE COLLECTED AND SENT TO LAB
[2020-12-09 23:16] LABS: BILIRUBIN,URINE SMALL (NEGATIVE); COLOR,URINE YELLOW (YELLOW); LEUKOCYTE ESTERASE ,URINE Negative (NEGATIVE); NITRITE, URINE Negative (NEGATIVE); PH,URINE 5.5 (5.0-8.0); PROTEIN,URINE Trace mg/dl (NEGATIVE); UGLUCOSE Negative (NEGATIVE); UROBILINOGEN,URINE 0.2 EU/dL (0.2)
[2020-12-10] LABS: BACTERIA,URINE Few /HPF (None Seen); CALCIUM OXALATE CRYSTALS,UR Few /HPF (None Seen); RBC,URINE 0-2 /HPF (0-2); SQUAMOUS EPITHELIAL CELL,UR Few /HPF (None Seen); WBC,URINE 0-2 /HPF (0-3)
[2020-12-10 00:01] LABS: HYALINE CASTS, URINE Few /LPF (None Seen); URINE AMORPHOUS URATE Few /HPF (None Seen)
--- NOTE | 2020-12-10 00:02 | NUR ---
PCR SWAB COLLECTED AND SENT TO LAB
--- NOTE | 2020-12-10 00:30 | NUR ---
REPORT GIVEN TO NURSE DHIRAJ, PATIENT GOING TO ROOM 109.
--- NOTE | 2020-12-10 01:17 | NUR ---
PT WAS TRANSFERRED TO RM 109 UNDER ACLS
[2020-12-10] MEDS ORDERED: ONDANSETRON HCL/PF 4 MG/2 ML VIAL IV PRN (01:30)
[2020-12-10] MEDS ORDERED: ACETAMINOPHEN 325 MG TABLET PO PRN (01:30)
[2020-12-10 01:40] VITALS: BP 142/73
--- NOTE | 2020-12-10 01:49 | NUR ---
PATIENT ADMIT TO ROOM 109 TELE, PATIENT IN NO ACUTE DISTRESS. PATIENT V/S WITHIN NORMAL LIMITS. PATIENT TOLERATING 2L VIA NC WELL, O2 97%.
[2020-12-10] MEDS: IV NS 0.9% 1,000 ML IV PRN (02:58)
[2020-12-10] MEDS ORDERED: PIPERACILLIN /TAZOBACTAM 3.375 G VIAL IV ONE (03:59)
[2020-12-10 04:00] VITALS: BP 124/50
[2020-12-10] MEDS ORDERED: ZOSYN IVPB 3.375 G in IV D5W 50ml IV ONE (04:00)
--- NOTE | 2020-12-10 04:02 | NUR ---
MED NOTE: ZOSYN ADMINISTERED UNDER ACKNOWLEDGED DOSE.
[2020-12-10 05:58] LABS: BASOPHILS % (AUTO) 0.5 % (0.0-2.0); EOSINOPHILS % (AUTO) 0.6 % (0.0-6.0); HEMATOCRIT 38 % (33-45); HEMOGLOBIN 12.9 g/dL (11.5-14.8); LYMPHOCYTES # (AUTO) 2.4 /CMM (0.8-4.8); LYMPHOCYTES % (AUTO) 26.8 % (20.0-44.0); MEAN CORPUSCULAR HGB CONC 34 g/dl (31.0-36.0); MEAN CORPUSCULAR VOLUME 98 fL (82-100); MONOCYTES # (AUTO) 1.1 /CMM (0.1-1.30); MONOCYTES % (AUTO) 12.6 % (2.0-12.0); NEUTROPHILS # (AUTO) 5.4 /CMM (1.8-8.9); NEUTROPHILS % (AUTO) 59.5 % (43.0-81.0); PLATELET COUNT (AUTO) 156 /CMM (150-450); RED BLOOD CELL COUNT(AUTO) 3.92 MIL/uL (4.0-5.2); WHITE BLOOD COUNT (AUTO) 9.1 K/uL (4.3-11.0)
[2020-12-10 06:12] LABS: CALCIUM, SERUM 8.1 mg/dL (8.5-10.1); CREATININE 1.3 mg/dL (0.6-1.3); POTASSIUM 4.2 mmol/L (3.5-5.1)
--- NOTE | 2020-12-10 07:30 | NUR ---
ms rn received on bed, awake,alert,oriented x4,not in any form of distress, respirations even and unlabored,abdomen soft,positive bowel sounds,denies pain at this time, will monitor patient's condition.
[2020-12-10] MEDS ORDERED: ASPI-1169 PO (07:41)
[2020-12-10] MEDS: PANTOPRAZOLE 40 MG VIAL IV SCH (07:41)
[2020-12-10] MEDS ORDERED: AMLO2.5T4 PO (07:41)
[2020-12-10] MEDS ORDERED: DIVA-76 PO (07:41)
[2020-12-10] MEDS ORDERED: CARB1TAB31 PO (07:41)
[2020-12-10] MEDS ORDERED: DONE10TA44 PO (07:41)
[2020-12-10] MEDS ORDERED: MIRT15TA7 PO (07:41)
[2020-12-10 08:00] VITALS: BP 156/55
[2020-12-10] MEDS: HEPARIN SODIUM, PORCINE 5000 UNITS/1 ML VIAL SQ SCH ×2 (11:40→21:07)
[2020-12-10 12:55] LABS: THYROID STIMULATING HORMONE 2.035 uIU/mL (0.358-3.74)
[2020-12-10] MEDS: IPRATROPIUM NEB FS 0.5 MG/2.5 ML AMPUL.NEB NEB SCH ×2 (13:06→19:30)
[2020-12-10] MEDS: PIPERACILLIN /TAZOBACTAM 3.375 G in IV D5W 50 ML IV SCH ×3 (13:17→23:53)
[2020-12-10 16:00] VITALS: BP 131/45
[2020-12-10] MEDS ORDERED: CARBIDOPA/LEVODOPA 10/100 MG 1 UDTAB PO SCH (17:00)
[2020-12-10] MEDS ORDERED: BUPROPION XL 150 MG TAB.ER.24 PO SCH (17:00)
[2020-12-10] MEDS: DIVALPROEX SODIUM 250 MG TABLET.DR PO SCH (17:00)
--- NOTE | 2020-12-10 17:50 | NUR ---
TELE CONSUMER SAFETY INSPECTOR NOTE: patient stated she didn't want the scheduled Divalproex Sodium Tablet 250 mg, stated '' I was depressed in the past not now, I don't need that medication.
--- NOTE | 2020-12-10 19:00 | NUR ---
ms rn on bed, no distress noted, endorsed to mini shifter for alicia.
--- NOTE | 2020-12-10 19:30 | NUR ---
RN NOTE RECEIVED PT IN BED, ALERT AND ORIENTED X3-4. ON O2 VIA NC AT 2LPM DENIES ANY SOB OR PAIN. NO DISTRESS NOTED. IVF NS RUNNING AT 75 ML/HR, IV PATENT AND INTACT. WILL CONTINUE TO MONITOR. ALL SAFETY MEASURES IMPLEMENTED PER PROTOCOL. CALL LIGHT WITHIN REACH. BED LOCKED IN LOWEST POSITION. SIDE RAILS UP. HOB ELEVATED.
--- NOTE | 2020-12-10 19:30 | NUR ---
breathing tx held due to pending pcr results
[2020-12-10 20:00] VITALS: BP 120/46
[2020-12-10] MEDS: VANCOMYCIN 1.25 GM in IV D5W 250 ML IV SCH (21:05)
[2020-12-10] MEDS: OLANZAPINE 10 MG TABLET PO SCH (21:05)
[2020-12-10] MEDS: MIRTAZAPINE 15 MG TABLET PO SCH (21:06)
[2020-12-10] MEDS: SIMVASTATIN 10 MG TABLET PO SCH (21:06)
[2020-12-11] MEDS: IPRATROPIUM NEB FS 0.5 MG/2.5 ML AMPUL.NEB NEB SCH ×4 (01:30→19:30)
--- NOTE | 2020-12-11 01:30 | NUR ---
breathing tx held due to pending pcr results
[2020-12-11] MEDS: IV NS 0.9% 1,000 ML IV PRN (03:44)
[2020-12-11 04:00] VITALS: BP 139/57
[2020-12-11] MEDS: PIPERACILLIN /TAZOBACTAM 3.375 G in IV D5W 50 ML IV SCH ×3 (05:42→17:56)
--- NOTE | 2020-12-11 06:39 | NUR ---
RN CLOSING NOTES PT SLEEPING WELL, AROUSES EASILY, CONTINUE ON O2 VIA NC AT 2LPM, NO S/SX OF DISTRESS NOTED. NO SIGNS OF PAIN OR DISCOMFORT. PT ABLE TO MAKE NEEDS KNOWN, CONTINENT USING BEDPAN. SKIN INTACT. CONTINUE ON IVF NS AT 75 ML/HR. NEW IV LINE ON LFA, PATENT AND INTACT. NO SIGNS OF INFECTION NOTED. REMAIN AFEBRILE, VS STABLE. ALL SAFETY MEASURES MAINTAINED. WILL ENDORSE TO NEXT SHIFT NURSE FOR LEANNE.
--- NOTE | 2020-12-11 07:26 | NUR ---
RT RESP TX HELD DO TO PENDING PCR RESULTS. PATIENT IN NO DISTRESS OR SOB.
[2020-12-11 07:29] LABS: CREATININE 1.1 mg/dL (0.6-1.3)
[2020-12-11] MEDS ORDERED: OMEPRAZOLE 20 MG CAPSULE.DR PO SCH (07:30)
--- NOTE | 2020-12-11 07:30 | NUR ---
RN OPENING NOTES Patient is alert and oriented with episodes of forgetfulness. No c/o pain or discomfort. Patient in good stable condition. IV fluids running to left ac , gloria well. Patient will be monitored. Call light with in reach.
[2020-12-11] MEDS: LEVOTHYROXINE SODIUM 100 MCG TABLET PO SCH (07:45)
[2020-12-11] MEDS: PANTOPRAZOLE 40 MG VIAL IV SCH (07:46)
[2020-12-11 08:00] VITALS: BP 152/63
[2020-12-11] MEDS: FERROUS SULFATE (325 MG) 325 MG/TAB TABLET PO SCH (08:21)
[2020-12-11] MEDS: ASPIRIN 81 MG TAB.CHEW PO SCH (08:21)
[2020-12-11] MEDS: DIVALPROEX SODIUM 250 MG TABLET.DR PO SCH ×2 (08:22→17:43)
[2020-12-11] MEDS: CALCITRIOL 0.25 MCG CAPSULE PO SCH (08:22)
[2020-12-11] MEDS: AMLODIPINE BESYLATE 2.5 MG TABLET PO SCH (08:22)
[2020-12-11] MEDS: DONEPEZIL 5 MG TABLET PO SCH (08:23)
[2020-12-11] MEDS: LISINOPRIL (10MG) 10 MG TABLET PO SCH (08:23)
[2020-12-11] MEDS: METOPROLOL SUCCINATE 25 MG TAB.SR.24H PO SCH (08:26)
[2020-12-11] MEDS: HEPARIN SODIUM, PORCINE 5000 UNITS/1 ML VIAL SQ SCH ×2 (08:34→21:48)
[2020-12-11 10:01] LABS: ALBUMIN 2.5 g/dL (3.4-5.0); BILIRUBIN,DIRECT 0.1 mg/dL (0.0-0.2); BILIRUBIN,TOTAL 0.4 mg/dL (0.2-1.0); TOTAL PROTEIN, SERUM 5.6 g/dL (6.4-8.2)
[2020-12-11 12:00] VITALS: BP 138/80
[2020-12-11 17:00] VITALS: BP_SYST 150; BP_SYST 170; BP_SYST 178; BP_DIAS 80; BP_DIAS 84; BP_DIAS 86
--- NOTE | 2020-12-11 17:05 | NUR ---
Patient's orthostatics were checked and listed. Patient felt dizzy while in standing position and shaky. MD Babin made aware.
--- NOTE | 2020-12-11 18:57 | NUR ---
RN CLOSING NOTES Patient is alert and oriented with episodes of forgetfulness. No c/o pain or discomfort. Patient in good stable condition. Left ac IV ACCESS, patent and flushing well. Continues on 02 2lpm via n/c with 02 sat of 95%. Patient will be monitored. Call light with in reach.
--- NOTE | 2020-12-11 19:40 | NUR ---
RN OPENING NOTE REC'D PT IN BED, A/O X3, PT IS ON 2L OF O2 VIA NC. TOLERATING WELL. NO SOB. NO DISTRESS NOTED. ON M/S MONITORING. PT DENIES PAIN AT THIS TIME. IV SITE, FLUSHED. NO S/S OF INFILTRATION NOTED. ALL NEEDS ATTENDED. SAFETY MEASURES IN PLACE. HOB ELEVATED TOLERATED. SIDE RAILS UP X2, BED LOCKED IN LOWEST POSITION, BED ALARM ON. CALL LIGHT WITHIN REACH. WILL CONT TO MONITOR CLOSELY.
[2020-12-11 20:00] VITALS: BP 154/64
[2020-12-11] MEDS: VANCOMYCIN 1.25 GM in IV D5W 250 ML IV SCH (21:43)
[2020-12-11] MEDS: OLANZAPINE 10 MG TABLET PO SCH (22:16)
[2020-12-11] MEDS: MIRTAZAPINE 15 MG TABLET PO SCH (22:16)
[2020-12-11] MEDS: SIMVASTATIN 10 MG TABLET PO SCH (22:17)
[2020-12-12] MEDS: PIPERACILLIN /TAZOBACTAM 3.375 G in IV D5W 50 ML IV SCH ×5 (00:54→23:59)
[2020-12-12] MEDS: IPRATROPIUM NEB FS 0.5 MG/2.5 ML AMPUL.NEB NEB SCH ×4 (01:23→19:30)
[2020-12-12 04:00] VITALS: BP 141/63
--- NOTE | 2020-12-12 05:08 | NUR ---
CONNIE GRIMM FROM LAB CALLED COVID PCR RESULT NEGATIVE.
[2020-12-12 06:25] LABS: BASOPHILS % (AUTO) 0.5 % (0.0-2.0); EOSINOPHILS % (AUTO) 1.9 % (0.0-6.0); HEMATOCRIT 39 % (33-45); HEMOGLOBIN 13.1 g/dL (11.5-14.8); LYMPHOCYTES # (AUTO) 1.8 /CMM (0.8-4.8); MEAN CORPUSCULAR HGB CONC 33 g/dl (31.0-36.0); MEAN CORPUSCULAR VOLUME 98 fL (82-100); MONOCYTES # (AUTO) 0.8 /CMM (0.1-1.30); MONOCYTES % (AUTO) 8.3 % (2.0-12.0); NEUTROPHILS # (AUTO) 6.7 /CMM (1.8-8.9); NEUTROPHILS % (AUTO) 70.3 % (43.0-81.0); PLATELET COUNT (AUTO) 166 /CMM (150-450); RED BLOOD CELL COUNT(AUTO) 4.01 MIL/uL (4.0-5.2); WHITE BLOOD COUNT (AUTO) 9.6 K/uL (4.3-11.0)
--- NOTE | 2020-12-12 06:40 | NUR ---
RN CLOSING NOTES NO CHANGE IN PT CONDITION. PT REMAINS ON 2L OF O2 VIA PT COOPERATIVE WITH CARE. NEW IV SITE PLACED. IV SITE RFA #22 PLACED. PREVIOUS IV SITE REMOVED CATH INTACT, NO S/S OF BLEEDING NOTED. SAFETY MEASURES IN PLACE HOB ELEVATED. SIDE RAILS UP X2 BED LOCKED IN LOWEST POSITION WITH BED ALARM ASSET PROTECTION MANAGER LIGHT WITHIN REACH. WILL ENDORSE TO AM SHIFT FOR CONTINUATION OF CARE.
[2020-12-12 06:45] LABS: CALCIUM, SERUM 8.1 mg/dL (8.5-10.1); POTASSIUM 3.8 mmol/L (3.5-5.1)
--- NOTE | 2020-12-12 07:30 | NUR ---
RN OPENING NOTE PATIENT PRESENT I BED, AWAKE, A/OX4, ON NC @ 3L OF O2, TOLERATING WELL, SPO2 96%, NO OB NOTED, DENIES PAIN, DISCOMFORT, IV LINE ON R FA, PATENT, INTACT, FLUSHED WELL, SAFETY MEASURES IN PLACE, CALL LIGHT IN REACH, HOB ELEVATED, BED LOCKED, IN LOWEST POSITION, WILL CONT TO MONITOR
[2020-12-12] MEDS: PANTOPRAZOLE 40 MG TABLET.DR PO SCH (07:41)
[2020-12-12] MEDS: LEVOTHYROXINE SODIUM 100 MCG TABLET PO SCH (07:41)
[2020-12-12] MEDS: LISINOPRIL (10MG) 10 MG TABLET PO SCH (09:36)
[2020-12-12] MEDS: ASPIRIN 81 MG TAB.CHEW PO SCH (09:37)
[2020-12-12] MEDS: FERROUS SULFATE (325 MG) 325 MG/TAB TABLET PO SCH (09:37)
[2020-12-12] MEDS: CALCITRIOL 0.25 MCG CAPSULE PO SCH (09:37)
[2020-12-12] MEDS: DIVALPROEX SODIUM 250 MG TABLET.DR PO SCH ×2 (09:37→17:12)
[2020-12-12] MEDS: DONEPEZIL 5 MG TABLET PO SCH (09:37)
[2020-12-12] MEDS: AMLODIPINE BESYLATE 2.5 MG TABLET PO SCH (09:38)
[2020-12-12] MEDS: METOPROLOL SUCCINATE 25 MG TAB.SR.24H PO SCH (09:39)
[2020-12-12] MEDS: HEPARIN SODIUM, PORCINE 5000 UNITS/1 ML VIAL SQ SCH ×2 (09:42→21:12)
--- NOTE | 2020-12-12 10:30 | NUR ---
Patient pulled out her mid-line during changing and bath bath, scratched CONNIE and MD JOY notified Addendum: 12/12/20 at 1127 by Mary Chowdary RN DISREGARD, ERROR
[2020-12-12 12:00] VITALS: BP 145/57
[2020-12-12] MEDS: VANCOMYCIN 1.25 GM in IV D5W 250 ML IV SCH (14:43)
[2020-12-12 16:00] VITALS: BP 150/55
--- NOTE | 2020-12-12 19:04 | NUR ---
RN CLOSING NOTES PATIENT REMAINS STABLE DURING SHIFT, ABLE TO BREATH WITH SPO2 95%, RESPIRATIONS EVEN AND UNLABORED, COMFORT NEEDS PROVIDED, MEDICATIONS GIVEN, EDUCATION PROVIDED, WILL ENDORSE TO PM SHIFT RN FOR LEANNE
--- NOTE | 2020-12-12 19:34 | NUR ---
YUKO/RN RECEIVE PATIENT AWAKE, ALERT, ORIENTED, COMFORTABLE, NO C/O PAIN, NO DISTRESS NOTED, CALL LIGHT IN REACH, FALL PRECAUTIONS PER PROTOCOL, NEEDS ATTENDED, WILL MONITOR.
[2020-12-12 20:00] VITALS: BP 124/67
[2020-12-12] MEDS: MIRTAZAPINE 15 MG TABLET PO SCH (21:08)
[2020-12-12] MEDS: SIMVASTATIN 10 MG TABLET PO SCH (21:08)
[2020-12-12] MEDS: OLANZAPINE 10 MG TABLET PO SCH (21:09)
[2020-12-13] MEDS: IPRATROPIUM NEB FS 0.5 MG/2.5 ML AMPUL.NEB NEB SCH ×3 (01:30→13:30)
[2020-12-13 05:16] VITALS: BP 126/72
[2020-12-13] MEDS: PIPERACILLIN /TAZOBACTAM 3.375 G in IV D5W 50 ML IV SCH ×2 (05:42→12:14)
--- NOTE | 2020-12-13 06:04 | NUR ---
YUKO/RN PATIENT IS AWAKE, COMFORTABLE, NO DISTRESS NOTED, GOOD SLEEP NOTED DURING THE SHIFT, CALL LIGHT IN REACH, ALL NEEDS ATTENDED AT THIS TIME, WILL CONTINUE TO MONITOR.
[2020-12-13 07:13] LABS: CREATININE 0.9 mg/dL (0.6-1.3); POTASSIUM 3.7 mmol/L (3.5-5.1)
[2020-12-13 08:00] VITALS: BP 150/69
[2020-12-13] MEDS: FERROUS SULFATE (325 MG) 325 MG/TAB TABLET PO SCH (09:06)
[2020-12-13] MEDS: ASPIRIN 81 MG TAB.CHEW PO SCH (09:06)
[2020-12-13] MEDS: AMLODIPINE BESYLATE 2.5 MG TABLET PO SCH (09:07)
[2020-12-13] MEDS: DIVALPROEX SODIUM 250 MG TABLET.DR PO SCH (09:07)
[2020-12-13] MEDS: LEVOTHYROXINE SODIUM 100 MCG TABLET PO SCH (09:07)
[2020-12-13] MEDS: METOPROLOL SUCCINATE 25 MG TAB.SR.24H PO SCH (09:07)
[2020-12-13] MEDS: PANTOPRAZOLE 40 MG TABLET.DR PO SCH (09:07)
[2020-12-13] MEDS: DONEPEZIL 5 MG TABLET PO SCH (09:08)
[2020-12-13] MEDS: CALCITRIOL 0.25 MCG CAPSULE PO SCH (09:08)
[2020-12-13] MEDS: LISINOPRIL (10MG) 10 MG TABLET PO SCH (09:08)
[2020-12-13] MEDS: HEPARIN SODIUM, PORCINE 5000 UNITS/1 ML VIAL SQ SCH (09:10)
[2020-12-13] MEDS: VANCOMYCIN 1.25 GM in IV D5W 250 ML IV SCH (09:55)
--- NOTE | 2020-12-13 11:45 | NUR ---
WOUND CARE CONSULT: PT PRESENTS WITH VERY RED RASH TO INNER THIGHS, INNER BUTTOCKS AND GROIN FOLDS, PERINEUM. PT IS INCONTINENT. RECOMMENDATIONS MADE FOR SKIN PROTECTION. DISCUSSED WITH NURSING STAFF. PT TO BE PLACED ON BRAYDON ISOFLEX LOW AIRLOSS BED. MD IN AGREEMENT WITH PLAN OF CARE.
[2020-12-13] MEDS ORDERED: AMOX-427 PO (12:52)
[2020-12-13 16:00] VITALS: BP 155/81
--- NOTE | 2020-12-13 16:36 | NUR ---
RN NOTE PT DISCHARGED IN STABLE CONDITION WITH EMT TO BOARD AND CARE
[2020-12-13] MEDS ORDERED: CLOTRIMAZOLE/BETAMETASONE DIPROPIONATE 15 GM TUBE TP SCH (17:00)
[2020-12-14] MEDS ORDERED: AMLODIPINE BESYLATE 2.5 MG TABLET PO SCH (09:00)
== END 2020-12-13 16:40 | DRG 871 ==
LOC: ER 20:45 → TELE1 23:48 → MEDSG1 12-10 08:17
PROVIDERS: ADMIT Legal Medicine; ATTEND Legal Medicine
DX: A41.9 Sepsis, unspecified organism (principal); J18.9 Pneumonia, unspecified organism; G93.41 Metabolic encephalopathy; N17.0 Acute kidney failure with tubular necrosis; E87.2 Acidosis; J98.11 Atelectasis; I10 Essential (primary) hypertension; E03.9 Hypothyroidism, unspecified; E66.01 Morbid (severe) obesity due to excess calories; E86.0 Dehydration; G47.33 Obstructive sleep apnea (adult) (pediatric); Z20.822 Contact with and (suspected) exposure to COVID-19; E78.5 Hyperlipidemia, unspecified; Z79.899 Other long term (current) drug therapy; Z91.5 Personal history of self-harm; Z79.890 Hormone replacement therapy; M19.90 Unspecified osteoarthritis, unspecified site; K21.9 Gastro-esophageal reflux disease without esophagitis; F41.9 Anxiety disorder, unspecified; F29 Unspecified psychosis not due to a substance or known physiological condition; R09.02 Hypoxemia; G20 Parkinson's disease; F02.80 Dementia in other diseases classified elsewhere, unspecified severity, without behavioral disturbance, psychotic disturbance, mood disturbance, and anxiety; R93.5 Abnormal findings on diagnostic imaging of other abdominal regions, including retroperitoneum; F31.9 Bipolar disorder, unspecified; I70.0 Atherosclerosis of aorta
CPT/HCPCS: 36415; 71045-TC; 76856-TC; 80048-TC; 80061-TC; 80076-TC; 80202-TC; 81001; 82728-TC; 83540-TC; 83605-TC; 84439-TC; 84443-TC; 84484-TC; 85025-TC; 85730-TC; 87040-TC; 87081-TC; 87086-TC; 93307-TC; 93970-TC; C9113; C9803; G0378; J1644; J2543; J3370; J7030; J7050; J7060; U0003

== ENCOUNTER 2021-07-03 18:34 | Emergency (ER) | payer MEDICARE, BC ==
[~2021-07-03] VITALS: Ht 170.2 cm; Wt 71.7 kg
[~2021-07-03 18:34] MED LIST changes: +AMLO2.5T4 PO; +AMOX-427 PO; -ARIP20TA4 PO; +ASPI-1169 PO; -BUPR-96 PO; -CALC-343 PO; -CALC500T29 PO; -CHOL200026 PO; -COLE625T9 PO; +DIVA-76 PO; -DOCU100T2 PO; +DONE10TA44 PO; -ESOM40SU PO; -FERR325T23 PO; -LITH300C4 PO; -MAGN400O6 PO; -METO25TA6 PO; +MIRT-90 PO; -MULT-594 PO; -OLME20TA13 PO; -POTA20TA83 PO; -SENN-261 PO; -SENN1TAB6 PO; -SIMV10TA2 PO; -TEMA15CA5 PO; -[UNRECOGNIZED DRUG - OTHER] PO
--- NOTE | 2021-07-03 18:46 | NUR ---
TO ER BED 4, BIBRA 102 FROM [facility] C/O NEAR SYNCOPAL EPISODE. AAOX3, BREATHING EVEN AND NON LABORED, CONNECTED TO MONITOR
[2021-07-03] MEDS ORDERED: IV NS 0.9% 1,000 ML BAG IV ONE (19:00)
--- NOTE | 2021-07-03 19:15 | NUR ---
REC'D REPORT FROM CONNIE CARR FOR [facility]
--- NOTE | 2021-07-03 19:20 | NUR ---
pt cleaned and changed. Needs met
--- NOTE | 2021-07-03 19:24 | NUR ---
LAB AT BEDSIDE
--- NOTE | 2021-07-03 19:40 | NUR ---
COVID SWAB SENT TO LAB
[2021-07-03 19:57] LABS: BASOPHILS # (AUTO) 0.1 K/uL (0.0-0.2); BASOPHILS % (AUTO) 0.5 % (0.0-2.0); EOSINOPHILS % (AUTO) 0.4 % (0.0-6.0); HEMATOCRIT 36 % (33-45); HEMOGLOBIN 11.8 g/dL (11.5-14.8); LYMPHOCYTES % (AUTO) 7.9 % (20.0-44.0); MEAN CORPUSCULAR HGB CONC 32 g/dl (31.0-36.0); MEAN CORPUSCULAR VOLUME 96 fL (82-100); MONOCYTES # (AUTO) 0.8 K/uL (0.1-1.30); MONOCYTES % (AUTO) 6.3 % (2.0-12.0); NEUTROPHILS # (AUTO) 10.8 K/uL (1.8-8.9); NEUTROPHILS % (AUTO) 84.9 % (43.0-81.0); PLATELET COUNT (AUTO) 334 K/uL (150-450); RED BLOOD CELL COUNT(AUTO) 3.81 MIL/uL (4.0-5.2); WHITE BLOOD COUNT (AUTO) 12.8 K/uL (4.3-11.0)
[2021-07-03 20:04] LABS: CALCIUM, SERUM 8.1 mg/dL (8.5-10.1); CARBON DIOXIDE 21 mmol/L (21-32); CHLORIDE 111 mmol/L (98-107); GLUCOSE 122 mg/dL (74-106); POTASSIUM 3.6 mmol/L (3.5-5.1); SODIUM SERUM 143 mmol/L (136-145); UREA NITROGEN, BLOOD 14 mg/dL (7-18)
--- NOTE | 2021-07-03 20:15 | NUR ---
pt cleaned and changed. Pt adjusted to new position. Needs met
[2021-07-03 20:18] LABS: ALANINE AMINOTRANSFERASE 33 U/L (12-78); ALBUMIN 2.3 g/dL (3.4-5.0); ALKALINE PHOSPHATASE 98 U/L (46-116); ASPARTATE AMINOTRANSFERASE 41 U/L (15-37); BILIRUBIN,DIRECT 0.1 mg/dL (0.0-0.2); BILIRUBIN,TOTAL 0.4 mg/dL (0.2-1.0); TOTAL PROTEIN, SERUM 5.5 g/dL (6.4-8.2)
--- NOTE | 2021-07-03 20:51 | NUR ---
PER CONNIE GANDHI FROM [facility], PT TAKES ELIQUIS 5MG BID AND REMERON 15MG. MD BAER
--- NOTE | 2021-07-03 20:58 | NUR ---
EPIC PAGED PER DR FRIEDMAN
[2021-07-03] MEDS ORDERED: IV NS 0.9% 1,000 ML IV PRN (21:30)
[2021-07-03] MEDS ORDERED: Z GUARD REMEDY 2 OZ OINT TP PRN (21:30)
[2021-07-03] MEDS ORDERED: ONDANSETRON HCL/PF 4 MG/2 ML VIAL IVP PRN (21:30)
[2021-07-03] MEDS ORDERED: HYDROCODONE/APAP 5/325MG TABLET PO PRN (21:30)
[2021-07-03] MEDS ORDERED: MAGNESIUM HYDROXIDE 30 ML UDC PO PRN (21:30)
[2021-07-03] MEDS ORDERED: ACETAMINOPHEN 325 MG TABLET PO PRN (21:30)
[2021-07-03] MEDS ORDERED: ZOLPIDEM TARTRATE 5 MG TABLET PO PRN (21:30)
[2021-07-03] MEDS ORDERED: MAG HYDROX/AL HYDROX/SIMETH 30 ML UDC PO PRN (21:30)
--- NOTE | 2021-07-03 21:40 | NUR ---
LAB AT BEDSIDE
[2021-07-03] MEDS ORDERED: MIRTAZAPINE 15 MG TABLET PO SCH (22:00)
[2021-07-03] MEDS ORDERED: SIMVASTATIN 10 MG TABLET PO SCH (22:00)
[2021-07-03] MEDS ORDERED: DONEPEZIL 5 MG TABLET PO SCH (22:00)
[2021-07-03] MEDS ORDERED: OLANZAPINE 10 MG TABLET PO SCH (22:00)
[2021-07-03] MEDS ORDERED: MIRTAZAPINE 15 MG TABLET ONE (23:13)
[2021-07-03] MEDS ORDERED: OLANZAPINE 5 MG TABLET ONE (23:13)
[2021-07-03] MEDS ORDERED: DONEPEZIL 5 MG TABLET ONE (23:14)
[2021-07-03] MEDS ORDERED: SIMVASTATIN 10 MG TABLET ONE (23:14)
--- NOTE | 2021-07-04 00:13 | NUR ---
PT AGREED TO DO HEAD CT
--- NOTE | 2021-07-04 00:14 | NUR ---
pt cleaned and changed, placed in new position, needs met
--- NOTE | 2021-07-04 00:34 | NUR ---
returned from [place]
--- NOTE | 2021-07-04 01:20 | NUR ---
ATTEMPTED TO CALL DAUGHTER, EL, LEFT A MESSAGE
--- NOTE | 2021-07-04 01:38 | NUR ---
ATTEMPTED TO CALL EL, LEFT A MESSAGE
--- NOTE | 2021-07-04 01:56 | NUR ---
ATTEMPTED TO CALL EL, LEFT A MESSAGE
--- NOTE | 2021-07-04 02:49 | NUR ---
ATTEMPTED TO CALL DAUGHTER, EL, LEFT A MESSAGE
--- NOTE | 2021-07-04 03:38 | NUR ---
Called Adelina on house phone [phone]. left a message
--- NOTE | 2021-07-04 05:57 | NUR ---
per daughter, troy, the [facility] gave verbal auth over telephone for pt to [facility]. Witnessed by charge nurse, Devin
--- NOTE | 2021-07-04 06:04 | NUR ---
[facility] 60-75 min
[2021-07-04] MEDS ORDERED: LEVOTHYROXINE SODIUM 100 MCG TABLET PO SCH (07:00)
--- NOTE | 2021-07-04 07:11 | NUR ---
gave report to l[facility] reyes for alicia
[2021-07-04] MEDS ORDERED: OMEPRAZOLE 20 MG CAPSULE.DR PO SCH (07:30)
[2021-07-04] MEDS ORDERED: PANTOPRAZOLE 40 MG TABLET.DR PO SCH (07:30)
--- NOTE | 2021-07-04 08:00 | NUR ---
REPORT GIVEN TO EMS FOR TRANSFER BACK TO CARE FACILITY.
[2021-07-04 08:25] VITALS: BP 135/73
[2021-07-04] MEDS ORDERED: APIXABAN 5 MG TABLET PO SCH (09:00)
[2021-07-04] MEDS ORDERED: DIVALPROEX SODIUM 250 MG TABLET.DR PO SCH (09:00)
[2021-07-04] MEDS ORDERED: CALCITRIOL 0.25 MCG CAPSULE PO SCH (09:00)
[2021-07-04] MEDS ORDERED: FERROUS SULFATE (325 MG) 325 MG/TAB TABLET PO SCH (09:00)
[2021-07-04] MEDS ORDERED: BUPROPION XL 150 MG TAB.ER.24 PO SCH (09:00)
[2021-07-04] MEDS ORDERED: METOPROLOL SUCCINATE 25 MG TAB.SR.24H PO SCH (09:00)
[2021-07-04] MEDS ORDERED: LISINOPRIL (10MG) 10 MG TABLET PO SCH (09:00)
== END 2021-07-04 08:26 ==
LOC: ER 18:35
DX: R55 Syncope and collapse (principal); E87.2 Acidosis; Z86.718 Personal history of other venous thrombosis and embolism; Z79.01 Long term (current) use of anticoagulants; R94.31 Abnormal electrocardiogram [ECG] [EKG]; I10 Essential (primary) hypertension; Z20.822 Contact with and (suspected) exposure to COVID-19; Z79.82 Long term (current) use of aspirin; Z79.899 Other long term (current) drug therapy; E03.9 Hypothyroidism, unspecified; F31.9 Bipolar disorder, unspecified; F41.9 Anxiety disorder, unspecified; K21.9 Gastro-esophageal reflux disease without esophagitis
CPT/HCPCS: 36415; 70450; 71045; 80048; 80076; 83605 ×2; 84484 ×2; 85025; 87040 ×2; 87081; 87426; 93005 ×2; 96360; 99285; J7030; C9803